=== PATIENT | female | born 2005 | race African-American/Black ===

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

== ENCOUNTER 2025-04-08 16:29 | Emergency (ER) | payer OTHER, SELFPAY ==
[2025-04-08] VITALS (8 sets, daily range): BP systolic 106–138; BP diastolic 73–101; PULSE 51–83; RESP 11–24; TEMP 37.3; O2SAT 99–100
[2025-04-08 18:37] LABS: Hematocrit 36.2 % (37.0-47.0); Hemoglobin 12.3 g/dL (12.0-15.0); Immature Granulocyte Percent A 0.6 % (0-0.5); Immature Platelet Fraction Pct 7.1 % (0.9-11.2); Lymphocytes Absolute Auto 0.69 K/mm3 (0.9-3.2); Mean Corpuscular HGB Conc 34.0 g/dl (32-36); Mean Corpuscular Hemoglobin 30.8 pg (26-34); Mean Corpuscular Volume 90.7 fl (80-100); Nucleated Red Blood Cells Absolute Auto 0.000 K/mm3 (0.0-0.012); Nucleated Red Blood Cells Perc 0.0 % (0.0-0.2); Platelet Count Result 164 k/mm3 (150-375); Red Blood Count 3.99 M/mm3 (4.2-5.4); White Blood Count 7.1 K/mm3 (4.5-10.0)
[2025-04-08] MEDS: BELLADONNA ALK/PHENOB ELIX 10 ML, MAG HYDROX/ALUMINUM HYD/SIMETH 30 ML, LIDOCAINE 2% VI... PO (18:44)
[2025-04-08] MEDS: ONDANSETRON INJ 4 MG/2 ML VIAL IV PUSH (18:44)
[2025-04-08 18:46] LABS: Add Urine Microscopic? YES; Appearance Urine Turbid (Clear); Glucose Urine UA Negative (Negative); Leukocyte Esterase Ur Trace LEU/UL (Negative); Nitrate Urine Negative (Negative); Non Pathogenic Casts 0-2; Specific Grav Ur 1.033 (1.001-1.035)
[2025-04-08 18:50] LABS: Hypochromasia Occasional
[2025-04-08 18:51] LABS: Ovalocytes Occasional; Schistocytes None Seen
[2025-04-08 18:52] LABS: Alanine Aminotransferase 21 U/L (6-35); Albumin Level 4.1 g/dL (3.5-5.1); Alkaline Phosphatase 62 U/L (38-126); Anion Gap 9 mmol/L (4-12); Aspartate Amino Transferase 30 U/L (14-36); Bilirubin,Total 1.2 mg/dL (0.2-1.3); Blood Urea Nitrogen 17 mg/dL (7-17); Calcium 9.5 mg/dL (8.4-10.2); Carbon Dioxide 25 mmol/L (22-30); Chloride 104 mmol/L (98-107); Estimated CRCL calculation 100 ml/min; Estimated Glomerular Filt Rate > 60; Glucose 90 mg/dL (65-110); Lipase 52 U/L (23-300); Potassium 3.6 mmol/L (3.4-5.0); Sodium 138 mmol/L (137-145); Total Protein 7.3 g/dL (6.3-8.2)
[2025-04-08] MEDS: SODIUM CHLORIDE 0.9% IV 1,000 ML 999 ML IV CONT (18:54)
[2025-04-08 18:59] LABS: BEDSIDEPREGUCG Negative (Negative)
--- NOTE | 2025-04-08 19:41 | ED_ITS ---
HPI - General Adult General Chief complaint: Nausea/Vomiting/Diarrhea Stated complaint: Vomiting 2 days, cp Time Seen by Provider: 04/08/25 17:54 History of Present Illness HPI narrative: Patient is a 19-year-old female who presents to the ER with nausea vomiting. Ongoing for 2 days. No diarrhea. It began after going to a cookout where she did not eat any of the food and she did not consume any alcohol. No known sick contacts. No blood in emesis. No alleviating factors at home. Related Data Allergies Allergy/AdvReac Type Severity Reaction Status Date / Time No Known Allergies Allergy Verified 04/08/25 18:07 Review of Systems 2 Review of Systems: All systems reviewed & are unremarkable except as noted in HPI and below Constitutional: Constitutional: Reports no additional constitutional complaints ENT: Reports system reviewed and no additional complaints, except as documented Cardiovascular: Cardiovascular: Reports no additional cardiovascular complaints Respiratory: Respiratory: Reports no additional respiratory complaints Gastrointestinal: Gastrointestinal: Reports no additional gastrointestinal complaints PMF Past Medical History Medical History (Updated 04/08/25 @ 19:49 by Robe Holly MD) Healthy female adult Surgical History Surgical History (Updated 04/08/25 @ 19:44 by Robe Holly MD) No history of previous surgery Exam 2 Narrative: GENERAL: Fatigued-appearing, well-nourished, and in no acute distress. HEAD: Normocephalic, atraumatic. ENT: Mucous membranes moist. NECK: Supple. CHEST: Clear to auscultation. No respiratory distress. HEART: Regular rate and rhythm. Normal peripheral pulses. ABDOMEN: Soft, mild diffuse discomfort without guarding, nondistended. EXTREMITIES: Normal range of motion. No edema. SKIN: Warm, dry, no rash. NEURO: Alert and oriented x3. PSYCH: Normal mood and affect. Course Course Emergency Course: CMP/CBC normal. Urinalysis with 2+ ketones and no infection. Patient received Zofran GI cocktail. Vital Signs Vital signs: Vital Signs Temperature 99.2 F 04/08/25 16:32 Pulse Rate 62 04/08/25 16:32 Respiratory Rate 20 04/08/25 16:32 Blood Pressure 138/101 H 04/08/25 16:32 Pulse Oximetry 100 04/08/25 16:32 Oxygen Delivery Room Air 04/08/25 16:32 Temperature 99.2 F 04/08/25 16:32 Pulse Rate 56 L 04/08/25 18:32 Respiratory Rate 24 H 04/08/25 18:32 Blood Pressure 125/73 04/08/25 18:06 Pulse Oximetry 100 04/08/25 18:32 Oxygen Delivery Room Air 04/08/25 18:06 Medical Decision Making Vital Signs Vital Signs: Vital Signs Temperature 99.2 F 04/08/25 16:32 Pulse Rate 62 04/08/25 16:32 Respiratory Rate 20 04/08/25 16:32 Blood Pressure 138/101 H 04/08/25 16:32 Pulse Oximetry 100 04/08/25 16:32 Oxygen Delivery Room Air 04/08/25 16:32 Temperature 99.2 F 04/08/25 16:32 Pulse Rate 56 L 04/08/25 18:32 Respiratory Rate 24 H 04/08/25 18:32 Blood Pressure 125/73 04/08/25 18:06 Pulse Oximetry 100 04/08/25 18:32 Oxygen Delivery Room Air 04/08/25 18:06 Lab Data 04/08/25 18:22 04/08/25 18:22 Labs: Lab Results 04/08/25 04/08/25 Range/Units 18:22 18:58 WBC 7.1 (4.5-10.0) K/mm3 RBC 3.99 L (4.2-5.4) M/mm3 Hgb 12.3 (12.0-15.0) g/dL Hct 36.2 L (37.0-47.0) % MCV 90.7 (80-100) fl MCH 30.8 (26-34) pg MCHC 34.0 (32-36) g/dl RDW 12.0 (11.5-14.5) % Plt Count 164 (150-375) k/mm3 MPV 11.8 H (7.4-10.4) fl Immature Gran % (Auto) 0.6 H (0-0.5) % Neut % (Auto) 85.0 H (45.5-73.1) % Lymph % (Auto) 9.7 L (18.3-44.2) % [place] % (Auto) 4.4 (2.6-8.5) % Eos % (Auto) 0.0 (0-4.4) % Baso % (Auto) 0.3 (0.2-1.2) % Lymph # (Auto) 0.69 L (0.9-3.2) K/mm3 [place] # (Auto) 0.3 (0.1-0.6) K/mm3 Eos # (Auto) 0.0 (0-0.3) K/mm3 Baso # (Auto) 0.0 (0.0-0.1) K/mm3 Abs Immat Gran (auto) 0.04 H (0.00-0.031) K/mm3 Absolute Neuts (auto) 6.1 (1.3-6.7) K/mm3 Absolute Nucleated RBC 0.000 (0.0-0.012) K/mm3 Band Neutrophils % Not Reportable Nucleated RBC % 0.0 (0.0-0.2) % Platelet Estimate Slightly decreased (Adequate) Large Platelets Present % Immature Plt Fraction 7.1 (0.9-11.2) % Hypochromasia Occasional Ovalocytes Occasional Schistocytes None seen Sodium 138 (137-145) mmol/L Potassium 3.6 (3.4-5.0) mmol/L Chloride 104 (98-107) mmol/L Carbon Dioxide 25 (22-30) mmol/L Anion Gap 9 (4-12) mmol/L BUN 17 (7-17) mg/dL Creatinine 0.87 (0.7-1.0) mg/dL Estim Creat Clear Calc 100 ml/min Estimated GFR > 60 (59 - ) Glucose 90 (65-110) mg/dL Calcium 9.5 (8.4-10.2) mg/dL Total Bilirubin 1.2 (0.2-1.3) mg/dL AST 30 (14-36) U/L ALT 21 (6-35) U/L Alkaline Phosphatase 62 (38-126) U/L Total Protein 7.3 (6.3-8.2) g/dL Albumin 4.1 (3.5-5.1) g/dL Lipase 52 (23-300) U/L Urine Color Dark yellow (Yellow) Urine Appearance Turbid H (Clear) Urine pH 7.5 (5.0-9.0) Ur Specific [place] 1.033 (1.001-1.035) Urine Protein 1+ H (Negative) mg/dL Urine Glucose (UA) Negative (Negative) mg/dL Urine Ketones 2+ H (Negative) mg/dL Ur Blood (Man) Negative (Negative) Urine Nitrate Negative (Negative) Urine Bilirubin Negative (Negative) Urine Urobilinogen 1.0 (<2.0) mg/dL Leukocyte Esterase Rfl Trace H (Negative) SHERRILL/UL Urine RBC 0-2 (0-2) /hpf Urine WBC 0-5 (0-3) /hpf Ur Squamous Epith Cells Occasional (Few) /hpf Urine Bacteria None seen /hpf Urine Casts 0-2 POC Urine HCG, Qual Negative (Negative) Discharge Plan Discharge Clinical Impression: Vomiting Patient Disposition: Home Condition: Stable Instructions: Acute Nausea and Vomiting (ED) Additional Instructions: Return to the emergency department if you develop severe abdominal pain, severe nausea and vomiting to the point where you are unable to keep down fluids, if you develop chest pain or difficulty breathing, blood in your stool, dizziness or fainting, or if you develop any other new or concerning symptoms as these could be signs of more serious medical illness. Try to stay well hydrated. Patient Language: Pashto Prescriptions: New dicyclomine 20 mg tablet 20 mg PO QID Qty: 20 0RF ondansetron 4 mg tablet,disintegrating 4 mg PO Q6H PRN (Reason: nausea and vomiting) Qty: 10 0RF famotidine [Pepcid] 20 mg tablet 20 mg PO DAILY Qty: 10 0RF No Action phenazopyridine [Pyridium] 200 mg tablet 200 mg PO TID 3 Days Qty: 9 0RF sulfamethoxazole-trimethoprim 800-160 mg tablet 1 tablet PO Q12H 5 Days Qty: 10 0RF nitrofurantoin monohyd/m-cryst [Macrobid] 100 mg capsule 100 mg PO Q12H 5 Days Qty: 10 0RF Rx Instructions: must administer with a meal/food Follow-up/Referrals: PHYSICIAN,APERTURE MASK ETCHER [Primary Care Provider, Internal Medicine] Marino Osborn MD [Physician, Family Practice] - 1 Week Stand Alone Forms: Work/School Release IP
[2025-04-08] MEDS: PROMETHAZINE HCL 25 MG/ML AMPUL 12.5 MG IV PUSH (20:02)
== END 2025-04-08 20:09 | disposition home or self-care (01) ==
PROVIDERS: Emergency Provider Emergency Medicine
DX: R11.2 Nausea with vomiting, unspecified (principal)
CPT/HCPCS: 36415; 80053; 81001; 81025; 83690; 85025; 85055; 96361; 96374; 96375; 99284; A9270; J2405; J2550; J7030

== ENCOUNTER 2025-04-11 03:09 | Emergency (ER) | payer OTHER, SELFPAY ==
[2025-04-11 03:15] VITALS: PULSE 77; RESP 13; TEMP 36.9; O2SAT 99
[2025-04-11 03:20] VITALS: BP 142/94; PULSE 69; RESP 15
--- NOTE | 2025-04-11 03:34 | ED.NAVMDI ---
HPI - Nausea/Vomiting/Diarrhea General Chief complaint: Nausea/Vomiting/Diarrhea Stated complaint: vomiting Time Seen by Provider: 04/11/25 03:15 History of Present Illness HPI Narrative: This is a 19-year-old female with no significant past medical history presents to the ED for nausea, vomiting, abdominal pain. Patient states for the past 4 days he has been having the symptoms. She has vomited up to 10 times daily. She has had diffuse abdominal pain. She was seen in this ED for similar symptoms few days ago and she states that her symptoms have not improved. Denies dysuria, chest pain, shortness of breath, fevers. Only prior abdominal surgery was a an umbilical hernia repair as an infant. Related Data Allergies Allergy/AdvReac Type Severity Reaction Status Date / Time No Known Allergies Allergy Verified 04/11/25 03:10 Review of Systems Review of Systems: Gen.: Denies fevers or chills Eyes: Denies eye pain or visual change ENT: Denies congestion Respiratory: Denies shortness of breath or cough CV: Denies chest pain or palpitations GI: As per HPI denies burning, urgency, frequency or hematuria Musculoskeletal: Denies back pain or muscle pain Neuro: Denies numbness, tingling, weakness or focal weakness Skin: Denies rash Except as documented, all other systems reviewed and negative PMFSH Past Medical History Medical History Healthy female adult Surgical History Surgical History No history of previous surgery Exam Narrative: APPEARANCE: Uncomfortable appearing, resting in bed EYES: EOMI HEENT: Normocephalic, atraumatic, mucous membranes dry RESPIRATORY: No respiratory distress Clear to auscultation bilaterally with no rhonchi wheezing or rales. CARDIOVASCULAR: Regular rate and rhythm without murmurs rubs or gallops. ABDOMINAL: Soft, mild diffuse tenderness to palpation without rebound or guarding MUSCULOSKELETAl: Moves all extremities. No clubbing, cyanosis or edema. NEURO: Awake and alert. Following commands, speech normal, no focal deficits SKIN:: Warm, dry. No rashes lesions or abrasions PSYCHIATRIC: Normal affect/mood, Course Vital Signs Vital signs: Vital Signs Temperature 98.5 F 04/11/25 03:15 Pulse Rate 77 04/11/25 03:15 Respiratory Rate 13 04/11/25 03:15 Pulse Oximetry 99 04/11/25 03:15 Oxygen Delivery Room Air 04/11/25 03:15 Temperature 98.5 F 04/11/25 03:15 Pulse Rate 69 04/11/25 03:20 Respiratory Rate 15 04/11/25 03:20 Blood Pressure 142/94 H 04/11/25 03:20 Pulse Oximetry 99 04/11/25 03:15 Oxygen Delivery Room Air 04/11/25 03:15 MDM - Nausea/Vomiting/Diarrhea MDM Narrative Medical decision making narrative: 19-year-old female that presented to the ED for nausea, vomiting, abdominal pain. On initial evaluation, patient was in mild distress, afebrile, hemodynamically stable. She had mild diffuse tenderness to palpation to the abdomen without rebound or guarding. S membranes were dry. Patient was given 2 L NS bolus and Reglan and Toradol. On re-evaluation, she did have significant improvement of her nausea and pain. CBC was without significant abnormalities. She was mildly hypokalemic to 2.9. She was given 40 m equivalents potassium chloride. UDS positive for marijuana. Suspect that patient does have cyclic vomiting syndrome related to that. She was able to tolerate water and was feeling significantly better. Patient was deemed appropriate for discharge at this time. She was given a referral to [facility] to establish care. She will be given a prescription for Reglan and K-Dur. Patient was agreeable to this plan. Given strict return precautions. Differential Diagnosis Differential diagnosis: Likely food poisoning, gastroenteritis, drug-induced nausea and vomiting and dehydration Medical Records Attestation: I reviewed the patient's medical records. Lab Data Attestation: I reviewed the patient's lab results. 04/11/25 03:35 04/11/25 03:35 Labs: Lab Results 04/11/25 04/11/25 Range/Units 03:35 03:36 WBC 6.7 (4.5-10.0) K/mm3 RBC 4.56 (4.2-5.4) M/mm3 Hgb 14.0 (12.0-15.0) g/dL Hct 39.5 (37.0-47.0) % MCV 86.6 (80-100) fl MCH 30.7 (26-34) pg MCHC 35.4 (32-36) g/dl RDW 11.6 (11.5-14.5) % Plt Count 260 D (150-375) k/mm3 MPV 10.9 H (7.4-10.4) fl Immature Gran % (Auto) 0.3 (0-0.5) % Neut % (Auto) 69.1 (45.5-73.1) % Lymph % (Auto) 18.7 (18.3-44.2) % [place] % (Auto) 11.2 H (2.6-8.5) % Eos % (Auto) 0.3 (0-4.4) % Baso % (Auto) 0.4 (0.2-1.2) % Lymph # (Auto) 1.25 (0.9-3.2) K/mm3 [place] # (Auto) 0.8 H (0.1-0.6) K/mm3 Eos # (Auto) 0.0 (0-0.3) K/mm3 Baso # (Auto) 0.0 (0.0-0.1) K/mm3 Abs Immat Gran (auto) 0.02 (0.00-0.031) K/mm3 Absolute Neuts (auto) 4.6 (1.3-6.7) K/mm3 Absolute Nucleated RBC 0.000 (0.0-0.012) K/mm3 Nucleated RBC % 0.0 (0.0-0.2) % Sodium 133 L (137-145) mmol/L Potassium 2.9 L (3.4-5.0) mmol/L Chloride 97 L (98-107) mmol/L Carbon Dioxide 24 (22-30) mmol/L Anion Gap 12 (4-12) mmol/L BUN 7 D (7-17) mg/dL Creatinine 0.99 (0.7-1.0) mg/dL Estim Creat Clear Calc 89 ml/min Estimated GFR > 60 (59 - ) Glucose 96 (65-110) mg/dL Calcium 9.3 (8.4-10.2) mg/dL Total Bilirubin 1.9 H (0.2-1.3) mg/dL AST 42 H (14-36) U/L ALT 44 H (6-35) U/L Alkaline Phosphatase 61 (38-126) U/L Total Protein 8.4 H (6.3-8.2) g/dL Albumin 4.6 (3.5-5.1) g/dL Lipase 64 (23-300) U/L Urine Color Yellow (Yellow) Urine Appearance Turbid H (Clear) Urine pH 7.5 (5.0-9.0) Ur Specific [place] 1.016 (1.001-1.035) Urine Protein Negative (Negative) mg/dL Urine Glucose (UA) Negative (Negative) mg/dL Urine Ketones Negative (Negative) mg/dL Ur Blood (Man) Negative (Negative) Urine Nitrate Negative (Negative) Urine Bilirubin Negative (Negative) Urine Urobilinogen 2.0 H (<2.0) mg/dL Add Ur Microanalysis Reviewed Leukocyte Esterase Rfl 1+ H (Negative) SHERRILL/UL Urine RBC 0-2 (0-2) /hpf Urine WBC 0-5 (0-3) /hpf Ur Squamous Epith Cells None seen (Few) /hpf Amorphous Sediment Few H (None) Urine Bacteria None seen /hpf Urine Casts 0-2 POC Urine HCG, Qual Negative (Negative) Urine Test Negative Urine Opiates Screen Negative (Negative) Urine Methadone Screen Negative (Negative) Ur Barbiturates Screen Negative (Negative) Ur Phencyclidine Scrn Negative (Negative) Ur Amphetamine Screen Negative (Negative) U Benzodiazepines Scrn Negative (Negative) Urine Cocaine Screen Negative (Negative) U Cannabinoids Screen Positive A (Negative) Discharge Plan Discharge Clinical Impression: Cyclic vomiting syndrome Patient Disposition: Home Condition: Stable Instructions: Antibiotic Form, Cyclic Vomiting Syndrome (ED) Additional Instructions: Take Reglan as prescribed. Continue to take your previous medications as prescribed. Drink plenty of fluids. Try a bland diet. You were given a referral to Dr. Osborn. Return to the ED for any new or worsening symptoms. Patient Language: [place] Prescriptions: New metoclopramide HCl [Reglan] 10 mg tablet 10 mg PO Q6H PRN (Reason: nausea and vomiting) Qty: 14 0RF potassium chloride 20 mEq packet 40 meq PO DAILY Qty: 6 0RF No Action phenazopyridine [Pyridium] 200 mg tablet 200 mg PO TID 3 Days Qty: 9 0RF sulfamethoxazole-trimethoprim 800-160 mg tablet 1 tablet PO Q12H 5 Days Qty: 10 0RF nitrofurantoin monohyd/m-cryst [Macrobid] 100 mg capsule 100 mg PO Q12H 5 Days Qty: 10 0RF Rx Instructions: must administer with a meal/food dicyclomine 20 mg tablet 20 mg PO QID Qty: 20 0RF ondansetron 4 mg tablet,disintegrating 4 mg PO Q6H PRN (Reason: nausea and vomiting) Qty: 10 0RF famotidine [Pepcid] 20 mg tablet 20 mg PO DAILY Qty: 10 0RF Follow-up/Referrals: PHYSICIAN,SENIOR FIRMWARE ENGINEER [Primary Care Provider, Internal Medicine]
[2025-04-11] MEDS: KETOROLAC 30 MG/ML VIAL (*BKC) IV PUSH (03:37)
[2025-04-11 03:38] LABS: BEDSIDEPREGUCG Negative (Negative)
[2025-04-11] MEDS: SODIUM CHLORIDE 0.9% IV 1,000 ML 999 ML IV CONT ×2 (03:39→03:40)
[2025-04-11 03:47] LABS: Hematocrit 39.5 % (37.0-47.0); Hemoglobin 14.0 g/dL (12.0-15.0); Immature Granulocyte Percent A 0.3 % (0-0.5); Lymphocytes Absolute Auto 1.25 K/mm3 (0.9-3.2); Mean Corpuscular HGB Conc 35.4 g/dl (32-36); Mean Corpuscular Hemoglobin 30.7 pg (26-34); Mean Corpuscular Volume 86.6 fl (80-100); Nucleated Red Blood Cells Absolute Auto 0.000 K/mm3 (0.0-0.012); Nucleated Red Blood Cells Perc 0.0 % (0.0-0.2); Platelet Count Result 260 k/mm3 (150-375); Red Blood Count 4.56 M/mm3 (4.2-5.4); White Blood Count 6.7 K/mm3 (4.5-10.0)
[2025-04-11] MEDS: METOCLOPRAMIDE HCL INJ 10 MG/2 ML VIAL IV PUSH (03:47)
[2025-04-11 03:59] LABS: Alanine Aminotransferase 44 U/L (6-35); Albumin Level 4.6 g/dL (3.5-5.1); Alkaline Phosphatase 61 U/L (38-126); Anion Gap 12 mmol/L (4-12); Aspartate Amino Transferase 42 U/L (14-36); Bilirubin,Total 1.9 mg/dL (0.2-1.3); Blood Urea Nitrogen 7 mg/dL (7-17); Calcium 9.3 mg/dL (8.4-10.2); Carbon Dioxide 24 mmol/L (22-30); Chloride 97 mmol/L (98-107); Estimated CRCL calculation 89 ml/min; Estimated Glomerular Filt Rate > 60; Glucose 96 mg/dL (65-110); Lipase 64 U/L (23-300); Potassium 2.9 mmol/L (3.4-5.0); Sodium 133 mmol/L (137-145); Total Protein 8.4 g/dL (6.3-8.2)
[2025-04-11 04:00] LABS: Add Urine Microscopic? YES; Appearance Urine Turbid (Clear); Glucose Urine UA Negative (Negative); Leukocyte Esterase Ur 1+ LEU/UL (Negative); Need Manual Microscopic Reviewed; Nitrate Urine Negative (Negative); Non Pathogenic Casts 0-2; Specific Grav Ur 1.016 (1.001-1.035)
[2025-04-11] MEDS: POTASSIUM CHLORIDE 20 MEQ ER TABLET 40 MEQ PO (04:43)
[2025-04-11 05:06] LABS: Cannabinoid Screen Urine Positive (Negative)
[2025-04-11 05:24] LABS: Pregnancy On Board Control Positive
== END 2025-04-11 05:39 | disposition home or self-care (01) ==
PROVIDERS: Emergency Provider Student in an Organized Health Care Education/Training Program
DX: R11.15 Cyclical vomiting syndrome unrelated to migraine (principal)
CPT/HCPCS: 36415; 80053; 80307; 81001; 81025; 83690; 85025; 87086; 96361; 96374; 96375; 99284; A9270; J1885; J2765; J7030

== ENCOUNTER 2025-07-22 15:20 | Emergency (ER) | payer OTHER, SELFPAY ==
--- NOTE | ~2025-07-22 | XR_ITS ---
EXAMINATION: KUB: DATE: 07/22/2025. INDICATION: Constipation. TECHNIQUE: Supine AP view of the abdomen were obtained. COMPARISON: CT abdomen pelvis 03/20/2023. FINDINGS: Bowel gas pattern is normal. No significant fecal impaction. No abnormal soft tissue densities or calcific densities are seen. IMPRESSION: 1. Supine AP view of abdomen shows no significant focal abnormalities. Reviewed, dictated and finalized at location T. 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
--- OUTSIDE RECORDS SUMMARY | 2025-07-22 15:23 | XMS_ITS | Clinical Summary ---
Author Organization [facility] Address [address] [place] [id number] Care Team Providers Care Hostel Parent Name Role Phone None, Provider MD Primary Care Provider Unavaila ble Allergies No known active allergies Medications No known medications Active Problems Problem Noted Date Diagnosed Date Intractable vomiting with nausea 05/05/2025 Nausea & vomiting 04/22/2025 Encounters Date Type Department Care Team Description 05/04/2025 8:59 PM CDT - 05/07/2025 1:18 PM CDT Hospital Encounter [facility] [place] [address] Petr Talbot MD Nash, Anne N, MD Nausea Discharge Disposition: Home or Self Care (Routine Discharge) 05/04/2025 Travel 04/22/2025 1:44 PM CDT - 04/23/2025 12:22 PM CDT Hospital Encounter [facility] Med/Surg [address] [place] [address] Supriya George PA [place], Stuart, Vomiting Discharge Disposition: Home or Self Care (Routine Discharge) 04/22/2025 Travel from Last 3 Months Social History Tobacco Use Types Packs/Day Years Used Date Smoking Tobacco: Never Smokeless Tobacco: Never Tobacco Cessation:Counseling Given: Not Answered Alcohol Use Standard Drinks/Week Comments Never 0 (1 standard drink = 0.6 oz pur e alcohol) [facility] Utilities Answer Date Recorded In the past 12 months has [employer] electric, gas, oil, or water company threatened to shut off services in your home? No 05/05/2025 Humiliation, Afraid, Rape, and Kick questionnair e Answer Date Recorded Within the last year, have y ou been afraid of your partner or ex-partner? No 05/05/2025 Within the last year, have y ou been humiliated or emotionally abused in other ways by your partner or ex-partner? No Within the last year, have y ou been kicked, hit, slapped, or otherwise physically hurt by your partner or ex-partner? No 05/05/2025 Within the last year, have y ou been raped or forced to have any kind of sexual activity by your partner or ex-partner? No 05/05/2025 AUDIT-C Answer Date Recorded Q1: How often do you have a drink containing alcohol? Never 04/22/2025 Q2: How many drinks containi ng alcohol do you have on a typical day when you are drinking? Patient does not drink Q3: How often do you have si x or more drinks on one occasion? Never 04/22/2025 Overall Financial Resource Strain (CARDIA) Answe r Date Recorded How hard is it for you to pa y for the very basics like food, housing, medical care, and heating? Not very hard 05/05/2025 Hunger Vital Sign Answer Date Recorded Within the past 12 months, y ou worried that your food would run out before you got the money to buy more. Never true 05/05/20 25 Within the past 12 months, t he food you bought just didn't last and you didn't have money to get more. Never true 05/05/2025 PRAPARE - Transportation Answer Date Re corded In the past 12 months, has l ack of transportation kept you from medical appointments or from getting medications? No 04/25 In the past 12 months, has l ack of transportation kept you from meetings, work, or from getting things needed for daily living? No 05/05/2025 Housing Stability Vital Sign Answer Paul e Recorded In the last 12 months, was t here a time when you were not able to pay the mortgage or rent on time? No 05/05/2025 In the past 12 months, how m any times have you moved where you were living? 1 05/05/2025 At any time in the past 12 m [facility], were you homeless or living in a assisted (including now)? No 05/05/2025 Comments No Sex and Gender Information Value Date Recorded Sex Assigned at Female 04/22/2025 2:42 PM CDT Legal Sex Female 1:16 PM CDT Gender Identity Not on file Sexual Orientation Not on file Last Filed Vital Signs Vital Sign Reading Time Taken Comments Blood Pressure 150/91 05/07/2025 12:41 PM CDT Pulse 59 05/07/2025 12:41 PM CDT Temperature 37.1 C (98.7 F) 05/07/2025 12:41 PM CDT Respiratory Rate 14 05/07/2025 12:41 PM CDT Oxygen Saturation 100% 05/07/2025 12:41 PM CDT Inhaled Oxygen Concentration - - Weight 89.4 kg (197 lb 1.5 oz) 05/05/2025 2:42 A M CDT Height 167.6 cm (5' 6) 05/04/2025 8:54 PM CDT Body Mass Index 31.81 05/04/2025 8:54 PM CDT Plan of Treatment Health Maintenance Due Date Last Done Comments Annual Physical 2007 Meningococcal B Vaccine (1 of 2 - Standard) 2020 Hepatitis C 2022 COVID-19 Vaccine ( - 2024- season) 2025 Influenza Adult (#1) 2025 DTaP, Tdap and Td Vaccines (8 - Td or Tdap) 11/21/2025 11/22/2015, 11/22/2015, 10/10/2009, Additional history exists Hepatitis B Vaccines Completed 02/06/2005, 2004, 2004, Additional history exists Pneumococcal Vaccine: Pediatrics (0 to 5 Years) and At-Risk Patients (6 to 49 Years) Aged Out 08/14/2005, 02/06/2005, 2004, Additional history exists No longer eligible based on patient's age to complete this topic Hepatitis A Vaccines Completed 09/08/2007, 11/12/19 06 HPV Vaccines Completed 06/14/2017, 11/27/2016 Meningococcal Vaccine Completed 03/24/2021, 016 RSV Immunizations Under 20 Months Aged Out No longer eligible based on patient's age to complete this topic Goals Goal Patient Goal Type Associated Problems Recent Progress Patient-Stated? 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 inspector Procedure Name Priority Date/Time Associated Diagnosis Comments HC BASIC METABOLIC PANEL Routine 05/07/2025 5:09 AM CDT HC CBC AUTO W/AUTO DIFF Routine 05/07/2025 5:09 AM CDT HC MAGNESIUM Routine 05/06/2025 4:40 AM CDT HC BASIC METABOLIC PANEL Routine 05/06/2025 4:40 AM CDT HC CBC AUTO W/AUTO DIFF Routine 05/06/2025 4:40 AM CDT HC PHOSPHORUS TIMED 05/05/2025 2:34 PM CDT HC EIA QL CLOS DIFF TOXIN AG Routine 05/05/2025 1:52 PM CDT GI PANEL PCR - STOOL Routine 05/05/2025 1:52 PM CDT LACTIC ACID W REFLEX (SEPSIS) TIMED 05/05/2025 4:27 AM CDT HC BASIC METABOLIC PANEL STAT 05/05/2025 4:27 AM CDT HC CBC AUTO W/AUTO DIFF STAT 05/05/2025 4:27 AM CDT RESPIRATORY PCR PANEL 2 STAT 05/05/2025 2:15 AM CDT LACTIC ACID W REFLEX (SEPSIS) TIMED 05/05/2025 2:07 AM CDT HC BLOOD CULTURE STAT 05/05/2025 2:0 6 AM CDT HC BLOOD CULTURE STAT 05/05/2025 2:06 AM CDT SALICYLATE STAT 05/05/2025 2:[address] ABD+PEL W CON STAT 05/04/2025 11:5 5 PM CDT POCT URINE (BACK OFFICE) STAT 05/04/2025 11:36 PM CDT LACTIC ACID W REFLEX (SEPSIS) TIMED 05/04/2025 11:36 PM CDT HC CULTURE URINE W/COLONY CT Routine 05/04/2025 11:17 PM CDT DRUG SCREEN RAPID STAT 05/04/2025 11: 17 PM CDT HC URINALYSIS AUTO W/O MICRO STAT 05/04/2025 11:17 PM CDT TSH W/REFLEX Routine 05/04/2025 10:05 PM CDT HC PHOSPHORUS Routine 05/04/2025 10:05 PM CDT HC DRUG SCREEN PRESUMPTIVE INSTRUMENT T4 STAT 05/04/2025 10:05 PM CDT ETHANOL STAT 05/04/2025 10:05 PM CDT LACTIC ACID W REFLEX (SEPSIS) STAT 05/04/2025 9:13 PM CDT HC LIPASE STAT 05/04/2025 9:13 PM CDT HC MAGNESIUM STAT 05/04/2025 9:13 PM CDT HC BASIC METABOLIC PANEL STAT 05/04/2025 9:13 PM CDT HC CBC AUTO W/AUTO DIFF STAT 05/04/2025 9:13 PM CDT US ABD LIMITED Today 04/23/2025 8:35 AM CDT HC MAGNESIUM Routine 04/23/2025 4:36 AM CDT HC BASIC METABOLIC PANEL Routine 04/23/2025 4:36 AM CDT HC CBC AUTO W/AUTO DIFF Routine 04/23/2025 4:36 AM CDT HC LACTATE/LACTIC ACID TIMED 5:47 PM CDT HC BLOOD CULTURE STAT 04/22/2025 4:58 PM CDT LACTIC ACID W REFLEX (SEPSIS) TIMED 04/22/2025 4:58 PM CDT HC C-REACTIVE PROTEIN Routine 04/22/2025 4:57 PM CDT PROCALCITONIN (PCT) STAT 04/22/2025 4 :57 PM CDT HC COMPREHENSIVE METABOLIC PANEL STAT 04/22/2025 4:57 PM CDT HC BLOOD CULTURE STAT 04/22/2025 4:48 PM CDT LACTIC ACID W REFLEX (SEPSIS) STAT 04/22/2025 3:04 PM CDT ECG 12-LEAD Routine 04/22/2025 2:[address] ABD+PEL W CON STAT 04/22/2025 2:52 PM CDT POCT URINE (BACK OFFICE) STAT 04/22/2025 2:08 PM CDT HC CULTURE URINE W/COLONY CT STAT 04/22/2025 1:53 PM CDT HC SED RATE AUTO Routine 04/22/2025 1:53 PM CDT HC URINALYSIS AUTO W/O MICRO STAT 04/22/2025 1:53 PM CDT HC MAGNESIUM STAT 04/22/2025 1:53 PM CDT HC LIPASE STAT 04/22/2025 1:53 PM CDT BASIC METABOLIC PANEL STAT 04/22/2025 1:53 PM CDT HC CBC AUTO W/AUTO DIFF STAT 04/22/2025 1:53 PM CDT from Last 3 Months Results * (ABNORMAL) BASIC METABOLIC PANEL (05/07/2025 5:09 AM CDT) Only the most recent of6 resultswithin the time period is included. [facility] GLUCOSE 88 70 - 99 MG/DL 05/07/2025 5:55 AM CDT [facility] BUN 7 7 - 18 MG/DL 05/07/2025 5:55 AM CDT [facility] CREATININE S/P/B 0.75 0.55 - 1.02 MG/DL 05/07/2025 5:55 AM CDT [facility] SODIUM S/P/B 134(L) 136 - 145 MMOL/L 05/07/2025 5:55 AM CDT [facility] POTASSIUM S/P/B 3.5 3.5 - 5.1 MMOL/L 05/07/2025 5:55 AM CDT [facility] CHLORIDE S/P/B 98 97 - 115 MMOL/L 05/07/2025 5:55 AM CDT [facility] CO2 26.9 21 - 32 MMOL/L 05/07/2025 5:55 AM CDT [facility] CALCIUM S/P/B 9.4 8.5 - 10.1 MG/DL 05/07/2025 5:55 AM CDT [facility] ANION GAP 9.1 2 - 10 MMOL/L 05/07/2025 5:55 AM CDT [facility] BUN CREATININE RATIO 9.4 6 - 26 05/07/2025 5:55 AM CDT [facility] GFR ESTIMATE >90 >90 ML/MIN/1.7 3 M2 05/07/2025 5:55 AM CDT [facility] Comment: NOTE: eGFR is not calculated for patients <18 years of age or gender unknown. This is an estimated GFR calculation using the new CKD EPI creatinine equation without race and so does not require a correction factor for race. This estimated GFR should not be used for calculating drug doses. 05/07/2025 5:09 AM CDT us Lourdes Cisneros DO LABORATORY Fin al Result [facility] [address] [address], [place] [phone] * (ABNORMAL) CBC W/DIFF AUTOMATED (05/07/2025 5:09 AM CDT) Only the most recent of6 resultswithin the time period is included. WBC 8.21 4.5 - 13.0 x10'3/uL 05/07/2025 5:38 AM CDT [facility] RBC 3.84(L) 4.20 - 5.40 x10'6/uL 05/07/2025 5:38 AM CDT [facility] HGB 11.7(L) 12.0 - 16.0 G/DL 05/07/2025 5:38 AM CDT [facility] HCT 34.2(L) 38.0 - 48.0 % 05/07/2025 5:38 AM CDT [facility] MCV 89.1 81.0 - 99.0 FL 05/07/2025 5:38 AM CDT [facility] MCH 30.5 27.0 - 31.0 PG 05/07/2025 5:38 AM CDT [facility] MCHC 34.2 32.0 - 36.0 G/DL 05/07/2025 5:38 AM CDT [facility] RDW 11.9 11.5 - 14.5 % 05/07/2025 5:38 AM CDT [facility] PLT 278 130 - 400 x10'3/uL 05/07/2025 5:38 AM CDT [facility] MPV 11.1 9.3 - 12.2 FL 05/07/2025 5:38 AM CDT [facility] DIFFERENTIAL TYPE AUTOMATED DIFFERENTIAL 05/07/2025 5:38 AM CDT [facility] NEUTROPHILS % 81.3 % 05/07/2025 5:38 AM CDT [facility] LYMPHOCYTES % 10.0 % 05/07/2025 5:38 AM CDT [facility] MONOCYTES % 8.2 % 05/07/2025 5:38 AM CDT [facility] EOSINOPHILS 0.2 % 05/07/2025 5:38 AM CDT [facility] BASOPHILS 0.1 % 05/07/2025 5:38 AM CDT [facility] IMMATURE GRANS % 0.2 % 05/07/20 5:38 AM CDT [facility] ABS. NEUTROPHILS 6.67 1.80 - 8.00 x10'3/uL 05/07/2025 5:38 AM CDT [facility] ABS. LYMPHOCYTES 0.82(L) 1.20 - 5.20 x10'3/uL 05/07/2025 5:38 AM CDT [facility] ABS. MONOCYTES 0.67 0.24 - 0.86 x10'3/uL 05/07/2025 5:38 AM CDT [facility] ABS. EOSINOPHILS 0.02(L) 0.04 - 0.36 x10'3/uL 05/07/2025 5:38 AM CDT [facility] ABS. BASOPHILS 0.01 0.01 - 0.08 x10'3/uL 05/07/2025 5:38 AM CDT [facility] ABS. IMMATURE GRANULOCYTES 0.02 0.00 - 0.49 x10'3/uL 05/07/2025 5:38 AM CDT [facility] 05/07/2025 5:09 AM CDT Lourdes Cisneros DO LABORATORY Fin al Result [facility] [address] [place], [place] [id number], * MAGNESIUM (05/06/2025 4:40 AM CDT) Only the most recent of4 resultswithin the time period is included. MAGNESIUM 1.9 1.8 - 2.4 MG/DL 05/06/2025 5:29 AM CDT [facility] Comment:SLIGHT HEMOLYSIS, RE SULT MAY BE AFFECTED. 05/06/2025 4:40 AM CDT [facility] Fin al Result [facility] [address] [place] [address], * PHOSPHORUS, INORGANIC PHOSPHATE (05/05/2025 2:34 PM CDT) Only the most recent of2 resultswithin the time period is included. [facility] PHOSPHORUS 3.8 2.5 - 4.9 MG/DL 05/05/2025 3:09 PM CDT [facility] 05/05/2025 2:34 PM CDT us Lourdes Cisneros DO LABORATORY Fin al Result [facility] [address] [place] [address], * GI PANEL PCR - STOOL (05/05/2025 1:52 PM CDT) [facility] CAMPYLOBACTER PCR (STOOL) NOT DETECTED NOT DETECTED 05/05/2025 4:35 PM CDT [facility] PLESIOMONAS SHIGELLOIDES PCR (STOOL) NOT DETECTED NOT DETECTED 05/05/2025 4:35 PM CDT [facility] SALMONELLA PCR (STOOL) NOT DETECTED NOT DETECTED 05/05/2025 4:35 PM CDT [facility] VIBRIO PCR (STOOL) NOT DETECTED NOT DETECTED 05/05/2025 4:35 PM CDT [facility] VIBRIO CHOLERAE PCR (STOOL) NOT DETECTED NOT DETECTED 05/05/2025 4:35 PM CDT [facility] YERSINIA ENTEROCOLITICA PCR (STOOL) NOT DETECTED NOT DETECTED 05/05/2025 4:35 PM CDT [facility] ENTEROAGGREGATIVE ECOLI PCR (STOOL) NOT DETECTED NOT DETECTED 05/05/2025 4:35 PM CDT [facility] ENTEROPATHOGENIC ECOLI PCR (STOOL) NOT DETECTED NOT DETECTED 05/05/2025 4:35 PM CDT [facility] ENTEROTOXIGENIC ECOLI PCR (STOOL) NOT DETECTED NOT DETECTED 05/05/2025 4:35 PM CDT [facility] SHIGA LIKE TOXIN ECOLI PCR (STOOL) NOT DETECTED NOT DETECTED 05/05/2025 4:35 PM CDT [facility] SHIG/ENTEROINVASIVE ECOLI PCR (STOOL) NOT DETECTED NOT DETECTED 05/05/2025 4:35 PM CDT [facility] CRYPTOSPORIDIUM PCR (STOOL) NOT DETECTED NOT DETECTED 05/05/2025 4:35 PM CDT [facility] CYCLOSPORA CAYETANENSIS PCR (STOOL) NOT DETECTED NOT DETECTED 05/05/2025 4:35 PM CDT [facility] ENTAMOEBA HISTOLYTICA PCR (STOOL) NOT DETECTED NOT DETECTED 05/05/2025 4:35 PM CDT [facility] GIARDIA LAMBLIA PCR (STOOL) NOT DETECTED NOT DETECTED 05/05/2025 4:35 PM CDT [facility] ADENOVIRUS F40/41 PCR (STOOL) NOT DETECTED NOT DETECTED 05/05/2025 4:35 PM CDT [facility] ASTROVIRUS PCR (STOOL) NOT DETECTED NOT DETECTED 05/05/2025 4:35 PM CDT [facility] NOROVIRUS GI/GII PCR (STOOL) NOT DETECTED NOT DETECTED 05/05/2025 4:35 PM CDT [facility] ROTAVIRUS A PCR (STOOL) NOT DETECTED NOT DETECTED 05/05/2025 4:35 PM CDT [facility] SAPOVIRUS PCR (STOOL) NOT DETECTED NOT DETECTED 05/05/2025 4:35 PM CDT [facility] STOOL SPECIMEN / Unknown 05/05/2025 1:52 PM CDT us Cecilio Aiken MD MICROBIOLOGY - GENERAL ORDERAB LES Final Result [facility] [address] [place] [address], * CLOSTRIDIUM DIFFICILE (05/05/2025 1:52 PM CDT) [facility] ANTIGEN NEGATIVE NEGATIVE 05/05/2025 4:13 PM CDT [facility] C DIFFICILE TOXIN A&B (STOOL) NEGATIVE NEGATIVE 05/05/2025 4:13 PM CDT [facility] COMMENT GDH NEGATIVE/TOXI N A & B NEGATIVE: NEGATIVE FOR TOXIGENIC C. DIFFICILE. 05/05/2025 4:13 PM CDT [facility] STOOL SPECIMEN / Unknown 05/05/2025 1:52 PM CDT Cecilio Aiken MD BODY FLUIDS AND STOOLS ORDERAB LES Final Result Performing Organization Address City/[facility]/ZIP Co de Phone Number [facility] [address] [place] [address], * LACTIC ACID W REFLEX (SEPSIS) (05/05/2025 4:27 AM CDT) Only the most recent of6 resultswithin the time period is included. LACTIC ACID VENOUS 1.8 0.4 - 2.0 MMOL/L 05/05/2025 5:08 AM CDT [facility] 05/05/2025 4:27 AM CDT Supriya CHARLES LABORATORY Final Result [facility] [address] [place] [address], [place] [phone] * RESPIRATORY PCR PANEL 2 (05/05/2025 2:15 AM CDT) [facility] ADENOVIRUS PCR (RESP) NOT DETECTED NOT DETECTED 05/05/2025 3:32 AM CDT [facility] CORONAVIRUS 229E PCR (RESP) NOT DETECTED NOT DETECTED 05/05/2025 3:32 AM CDT [facility] CORONAVIRUS HKU1 PCR (RESP) NOT DETECTED NOT DETECTED 05/05/2025 3:32 AM CDT [facility] CORONAVIRUS NL63 PCR (RESP) NOT DETECTED NOT DETECTED 05/05/2025 3:32 AM CDT [facility] CORONAVIRUS OC43 PCR (RESP) NOT DETECTED NOT DETECTED 05/05/2025 3:32 AM CDT [facility] METAPNEUMOVIRUS PCR (RESP) NOT DETECTED NOT DETECTED 05/05/2025 3:32 AM CDT [facility] RHINOVIRUS/ENTEROV IRUS PCR (RESP) NOT DETECTED NOT DETECTED 05/05/2025 3:32 AM CDT [facility] INFLUENZA A PCR (RESP) NOT DETECTED NOT DETECTED 05/05/2025 3:32 AM CDT [facility] INFLUENZA B PCR (RESP) NOT DETECTED NOT DETECTED 05/05/2025 3:32 AM CDT [facility] PARAINFLUENZA 1 PCR (RESP) NOT DETECTED NOT DETECTED 05/05/2025 3:32 AM CDT [facility] PARAINFLUENZA 2 PCR (RESP) NOT DETECTED NOT DETECTED 05/05/2025 3:32 AM CDT [facility] PARAINFLUENZA 3 PCR (RESP) NOT DETECTED NOT DETECTED 05/05/2025 3:32 AM CDT [facility] PARAINFLUENZA 4 PCR (RESP) NOT DETECTED NOT DETECTED 05/05/2025 3:32 AM CDT [facility] RSV PCR (RESP) NOT DETECTED NOT DETECTED 05/05/2025 3:32 AM CDT [facility] B PARAPERTUSIS PCR (RESP) NOT DETECTED NOT DETECTED 05/05/2025 3:32 AM CDT [facility] BORDETELLA PERTUSSIS PCR (RESP) NOT DETECTED NOT DETECTED 05/05/2025 3:32 AM CDT [facility] CHLAMYDOPHILA PNEUMONIAE PCR (RESP) NOT DETECTED NOT DETECTED 05/05/2025 3:32 AM CDT [facility] MYCOPLASMA PNEUMONIAE PCR (RESP) NOT DETECTED NOT DETECTED 05/05/2025 3:32 AM CDT [facility] CORONAVIRUS SARS COV 2 PCR (RESP) NOT DETECTED NOT DETECTED 05/05/2025 3:32 AM CDT [facility] NASOPHARYNGEAL SWAB / Unknown 05/05/2025 2:15 AM CDT Lourdes Cisneros DO MICROBIOLOGY - GENE RAL ORDERABLES Final Result [facility] [address] [place] [address], * CULTURE, BACTERIA, BLOOD (05/05/2025 2:06 AM CDT) Only the most recent of4 resultswithin the time period is included. SPEC DESCRIPTION BLOOD 05/05/2025 12:32 AM CDT [facility] SPECIAL REQUESTS NO SPECIAL REQUEST 05/05/2025 12:32 AM CDT [facility] CULTURE RESULT NO GROWTH 5 DAYS 05/10/2025 2:44 AM CDT [facility] BLOOD SPECIMEN OBTAINED FOR BLOOD CULTURE / Unknown 05/05/2025 2:06 AM CDT 05/05/2025 2:17 AM CDT Lourdes Cisneros DO MICROBIOLOGY - GENE RAL ORDERABLES Final Result Performing Organization Address [facility]/ZIP Co de Phone Number [facility] [address] [place] [address], [place] [phone] * (ABNORMAL) SALICYLATE (05/05/2025 2:06 AM CDT) SALICYLATES <1.7(L) 2.8 - 20.0 MG/DL 05/05/2025 2:33 AM CDT [facility] Comment: THERAPEUTIC: 2.8-20.0 Toxic Level: >=30 05/05/2025 2:06 AM CDT Lourdes Cisneros DO LABORATORY Fin al Result Performing Organization Address [facility] de Phone Number [facility] [address] [place] [address], [place] [phone] * CT ABD+PEL W IV CON ONLY (05/04/2025 11:55 PM CDT) Only the most recent of2 resultswithin the time period is included. Anatomical Region Laterality Modality Abdomen Computed Tomogra phy 05/05/2025 12:0 9 AM CDT Impressions 05/05/2025 12:12 AM CDT IMPRESSION: 1. Mild to moderate wall thickening of the urinary bladder which may be seen in the setting of cystitis or secondary to relative underdistention. Correlation with urinalysis may be beneficial for further characterization. 2. Otherwise, no acute CT findings within the abdomen or pelvis. Referred By: Interpreted By: Abdi Brownlee MD, 05/05/2025 12:09 AM Narrative 05/05/2025 12:12 AM CDT [address] [address] EXAMINATION: CT ABD+PEL W CON, 05/05/2025 12:09 AM TECHNIQUE: Computed tomographic images of the abdomen and pelvis were obtained at the administration of 100 mL of Isovue-370 injected through the IV, without evidence of adverse reaction. Additional coronal and sagittal reformatted images were generated. A dose lowering technique was used for this procedure, which may include, but is not limited to, dose reduction technique, automated exposure control, the use of iterative reconstruction, and ALARA (As Low As Reasonably Achievable) / Image Gently techniques. HISTORY: Nausea and vomiting COMPARISON: CT abdomen and pelvis 04/22/2025 FINDINGS: Probable 0.6 cm fissure lymph node within the left lower lobe (best seen on series 3 image 7), unchanged from the prior CT abdomen and pelvis examination from 04/22/2025. Lung bases are well-aerated. Heart size is normal. ABDOMEN: Liver is normal in size and contour. Gallbladder is negative. There is no bile duct dilation. The pancreas is negative. The spleen is normal in size. Multiple small accessory spleens. No adrenal mass. No perinephric abnormality. Small left renal cyst. No hydronephrosis. No nephrolithiasis. The caliber of the abdominal aorta is normal. A few mildly prominent retroperitoneal lymph nodes, nonspecific, most likely reactive. PELVIS: The appendix is normal. There is no bowel dilation or wall thickening. Trace free fluid within the pelvis. Urinary bladder appears relatively decompressed. [id number] wall thickening of the urinary bladder, nonspecific. No pelvic adenopathy. No acute fracture nor destructive process of the visualized osseous structures. Procedure Note Abdi Brownlee MD - 05/05/2025 [facility] [address] [place], [place] [address] EXAMINATION: CT ABD+PEL W CON, 05/05/2025 12:09 AM TECHNIQUE: Computed tomographic images of the abdomen and pelvis wereobtained at the administration of 100 mL of Isovue-370 injected throughthe IV, without evidence of adverse reaction. Additional coronal andsagittal reformatted images were generated. A dose lowering technique wasused for this procedure, which may include, but is not limited to, dosereduction technique, automated exposure control, the use of iterativereconstruction, and ALARA (As Low As Reasonably Achievable) / Image Gentlytechniques. HISTORY: Nausea and vomiting COMPARISON: CT abdomen and pelvis 04/22/2025 FINDINGS: Probable 0.6 cm fissure lymph node within the left lower lobe(best seen on series 3 image 7), unchanged from the prior CT abdomen andpelvis examination from 04/22/2025. Lung bases are well-aerated. Heartsize is normal. ABDOMEN: Liver is normal in size and contour. Gallbladder is negative.There is no bile duct dilation. The pancreas is negative. The spleen isnormal in size. Multiple small accessory spleens. No adrenal mass. Noperinephric abnormality. Small left renal cyst. No hydronephrosis. Nonephrolithiasis. The caliber of the abdominal aorta is normal. A fewmildly prominent retroperitoneal lymph nodes, nonspecific, most likelyreactive. PELVIS: The appendix is normal. There is no bowel dilation or wallthickening. Trace free fluid within the pelvis. Urinary bladder appearsrelatively decompressed. Jclk-lk-[id number] wall thickening of the urinarybladder, nonspecific. No pelvic adenopathy. No acute fracture nordestructive process of the visualized osseous structures. IMPRESSION: 1. Mild to moderate wall thickening of the urinary bladder which may beseen in the setting of cystitis or secondary to relative underdistention.Correlation with urinalysis may be beneficial for furthercharacterization. 2. Otherwise, no acute CT findings within the abdomen or pelvis. Referred By: Interpreted By: Abdi Brownlee MD, 05/05/2025 12:09 AM Petr Talbot MD CT Final Resul t * POCT urine (05/04/2025 11:36 PM CDT) Only the most recent of2 resultswithin the time period is included. URINE HCG TEST NEGATIVE Internal Control: VALID 05/04/2025 11:3 6 PM CDT Supriya CHARLES POINT OF CARE TEST ORDERABLE S Final Result * (ABNORMAL) DRUG SCREEN RAPID (05/04/2025 11:17 PM CDT) AMPHETAMINE (U) NEGATIVE NEGATIVE 3:04 AM CDT [facility] BARBITURATES SCREEN (U) NEGATIVE NEGATIVE 05/05/2025 3:04 AM CDT [facility] BENZODIAZEPINES SCREEN (U) NEGATIVE NEGATIVE 05/05/2025 3:04 AM CDT [facility] CANNABINOIDS SCREEN (U) POSITIVE(A) NEGATIVE 05/05/2025 3:04 AM CDT [facility] COCAINE METABOLITES (U) NEGATIVE NEGATIVE 05/05/2025 3:04 AM CDT [facility] METHADONE (U) NEGATIVE NEGATIVE 05/05/2025 3:04 AM CDT [facility] OPIATE SCREEN (U) NEGATIVE NEGATIVE 025 3:04 AM CDT [facility] PHENCYCLIDINE PCP (U) NEGATIVE NEGATIVE 05/05/2025 3:04 AM CDT [facility] Comment: NOTE: RESULTS OF THIS DRUG SCREEN SHOULD BE USED FOR MEDICAL PURPOSES ONLY AND NOT FOR LEGAL OR EMPLOYMENT PURPOSES. POSITIVE RESULTS ARE NOT CONFIRMED. MEDICATIONS CONTAINING EPHEDRINE MAY CAUSE FALSE POSITIVE AMPHETAMINE CALL [phone], LAB, TO REQUEST CONFIRMATION TESTING. IF CREATININE IS <40 mg/dL. RECOLLECTION IS SUGGESTED. AMPHETAMINE- 500 NG/ML BARBITURATE- 200 NG/ML BENZODIAZEPINES- 200 NG/ML THC- 50 NG/ML COCAINE- 150 NG/ML METHADONE- 300 NG/ML OPIATE- 300 MG/ML PCP- 25 NG/ML CREATININE (U) 317.0(H) 28 - 217 MG/DL 05/05/2025 3:04 AM CDT [facility] URINE SPECIMEN / Unknown 05/04/2025 11:17 PM CDT us Lourdes Cisneros DO URINE ORDERABLES Fi nal Result [facility] [address] [place] [address], * (ABNORMAL) URINALYSIS (05/04/2025 11:17 PM CDT) Only the most recent of2 resultswithin the time period is included. SPECIMEN TYPE URINE CLEAN CATCH 05/04/2025 11:18 PM CDT [facility] COLOR (U) YELLOW 05/04/2025 11:29 PM CDT [facility] TRANSPARENCY CLEAR 05/04/2025 11:29 PM CDT [facility] SPECIFIC GRAVITY (U) 1.046(H) 1.001 - 1.030 05/04/2025 11:29 PM CDT [facility] U PH 7.0 5.0 - 9.0 05/04/2025 11:29 PM CDT [facility] LEUKOCYTES (U) NEGATIVE NEGATIVE 05/04/2025 11:29 PM CDT [facility] NITRITES NEGATIVE NEGATIVE 05/04/2025 11:29 PM CDT [facility] PROTEIN RANDOM (U) 30(H) <30 MG/DL 05/04/2025 11:29 PM CDT [facility] GLUCOSE (U) NORMAL NORMAL MG/DL 05/04/2025 11:29 PM CDT [facility] KETONES MG/DL (U) 80(A) NEGATIVE MG/DL 05/04/2025 11:29 PM CDT [facility] UROBILINOGEN 3.0(A) NORMAL MG/DL 05/04/2025 11:29 PM CDT [facility] BILIRUBIN (U) NEGATIVE NEGATIVE MG/DL 05/04/2025 11:29 PM CDT [facility] BLOOD (U) NEGATIVE NEGATIVE 05/04/2025 11:29 PM CDT [facility] MUCUS FEW /LPF 05/04/2025 11:29 PM CDT [facility] WBC/HPF 3 <6 /HPF 05/04/2025 11:29 PM CDT [facility] RBC/HPF 2 <6 /HPF 05/04/2025 11:29 PM CDT [facility] SQUAMOUS EPITHELIALS RARE /HPF 05/04/2025 11:29 PM CDT [facility] URINE SPECIMEN OBTAINED BY CLEAN CATCH PROCEDURE / Unknown 05/04/2025 11:17 PM CDT us Supriya CHARLES URINE ORDERABLES Final Resul t [facility] [address] [place] [address], [place] [phone] * URINE BACTERIA CULTURE (05/04/2025 11:17 PM CDT) Only the most recent of2 resultswithin the time period is included. SPEC DESCRIPTION URINE CLEAN CATCH 05/05/2025 9:46 AM CDT [facility] SPECIAL REQUESTS NO SPECIAL REQUEST 05/05/2025 9:46 AM CDT [facility] CULTURE RESULT NO GROWTH 2 DAYS 05/07/2025 6:51 AM CDT [facility] URINE SPECIMEN OBTAINED BY CLEAN CATCH PROCEDURE / Unknown 05/04/2025 11:17 PM CDT 05/05/2025 9:48 AM CDT Nury Espinosa MD MICROBIOLOGY - GENERAL OR DERABLES Final Result [facility] [address] [place] [address], [place] [phone] * TSH W/REFLEX (05/04/2025 10:05 PM CDT) TSH 0.393 0.358 - 3.74 uIU/ML 05/05/2025 1:19 AM CDT [facility] Comment: HIGH DOSES OF BIOTIN MAY INTERFERE WITH THIS TEST RESULT. CORRELATION TO CLINICAL HISTORY AND PRESENTATION RECOMMENDED. FREE T4 NOT INDICATED 05/04/2025 10:0 5 PM CDT Lourdes Cisneros DO LABORATORY Fin al Result Performing Organization Address City/[facility] Co de Phone Number [facility] [address] [place] [address], * ETHANOL (05/04/2025 10:05 PM CDT) ALCOHOL S/P/B <0.003 <0.003 G/DL 05/05/2025 1:19 AM CDT [facility] 05/04/2025 10:0 5 PM CDT Lourdes Cisneros DO LABORATORY Fin al Result [facility] [address] [place] [address], [place] [phone] * (ABNORMAL) ACETAMINOPHEN (05/04/2025 10:05 PM CDT) ACETAMINOPHEN S/P/B <2.0(L) 10.0 - 30.0 MCG/ML 05/05/2025 1:19 AM CDT [facility] Comment: THERAPEUTIC: 10-30 TOXIC: >200 05/04/2025 10:0 5 PM CDT Lourdes Cisneros DO LABORATORY Fin al Result Performing Organization Address City/[facility]/ZIP Co de Phone Number [facility] [address] [place] [address], [place] [phone] * LIPASE (05/04/2025 9:13 PM CDT) Only the most recent of2 resultswithin the time period is included. LIPASE 24 13 - 75 UNITS/L 05/04/2025 10:37 PM CDT [facility] 05/04/2025 9:13 PM CDT us Supriya CHARLES LABORATORY Final Result Performing Organization Address [facility] Co de Phone Number [facility] [address] [place] [address], [place] [phone] * US ABD LIMITED (04/23/2025 8:35 AM CDT) Anatomical Region Laterality Modality Abdomen Ultrasound 04/23/2025 10:0 2 AM CDT Impressions 04/23/2025 10:09 AM CDT IMPRESSION: 1. Partially obscured pancreas. 2. No appreciable acute abnormality. Ordered By: JUSTICE BAPTISTE Interpreted By: Rojas aHrt, 04/23/2025 10:02 AM Narrative 04/23/2025 10:09 AM CDT [address] [address] IMAGING STUDIES: [place] ABD LIMITED DATE: 04/23/2025 7:56 AM HISTORY: Epigastric pain 19-year-old female. Current inpatient. Epigastric pain. Nausea and vomiting since 04/06/2025. Increased pain during vomiting episodes. She reports being evaluated at another hospital and was given medications but reports medications have not improved her symptoms. COMPARISON: CT abdomen pelvis with contrast 04/22/2025. DISCUSSION: Liver echogenicity within normal limits. Liver length of 15.9 cm (on CT yesterday, hepatic craniocaudal length of 16 cm). No focal hepatic mass or intrahepatic biliary ductal dilatation. Color doppler imaging of the hepatic veins, inferior vena cava and portal vein and pulse Doppler imaging of the portal vein. Appropriate flow direction in the portal vein and normal color Doppler imaging of the interrogated venous system. Adequately distended gallbladder. No apparent gallstones or gallbladder sludge. Gallbladder wall is normal at 2.2 mm thickness. No sonographic Cedillo's sign. Common bile duct is normal at 4.4 mm diameter. Pancreatic head and tail are partially obscured by bowel. No appreciable abnormality of the visualized pancreas. Right kidney 12 x 3.4 x 5.6 cm. No hydronephrosis or apparent renal mass. Normal color Doppler signal within the right kidney. Procedure Note Rojas Hart MD - 04/23/[address] [address] IMAGING STUDIES: US ABD LIMITEDDATE: 04/23/2025 7:56 AM HISTORY: Epigastric pain 19-year-old female. Current inpatient.Epigastric pain. Nausea and vomiting since 04/06/2025. Increased painduring vomiting episodes. She reports being evaluated at another hospitaland was given medications but reports medications have not improved hersymptoms. COMPARISON: CT abdomen pelvis with contrast 04/22/2025. DISCUSSION: Liver echogenicity within normal limits. Liver length of 15.9 cm (on CTyesterday, hepatic craniocaudal length of 16 cm). No focal hepatic mass orintrahepatic biliary ductal dilatation. Color doppler imaging of the hepatic veins, inferior vena cava and portalvein and pulse Doppler imaging of the portal vein. Appropriate flowdirection in the portal vein and normal color Doppler imaging of theinterrogated venous system. Adequately distended gallbladder. No apparent gallstones or gallbladdersludge. Gallbladder wall is normal at 2.2 mm thickness. No sonographicMurphy's sign. Common bile duct is normal at 4.4 mm diameter. Pancreatic head and tail are partially obscured by bowel. No appreciableabnormality of the visualized pancreas. Right kidney 12 x 3.4 x 5.6 cm. No hydronephrosis or apparent renal mass.Normal color Doppler signal within the right kidney. IMPRESSION: 1. Partially obscured pancreas. 2. No appreciable acute abnormality. Ordered By: JUSTICE BAPTISTE Interpreted By: Rojas Hart, 04/23/2025 10:02 AM Justice Baptiste DO ULTRASOUND Final Result * LACTIC ACID (04/22/2025 5:47 PM CDT) LACTIC ACID VENOUS 1.5 0.4 - 2.0 MMOL/L 04/22/2025 6:25 PM CDT [facility] 04/22/2025 5:47 PM CDT Nury Espinosa MD LABORATORY Final Res ult [facility] [address] [place] [address], [place] [phone] * (ABNORMAL) PROCALCITONIN (PCT) (04/22/2025 4:57 PM CDT) PROCALCITONIN 0.69(H) 0.00 - 0.49 NG/ML 04/22/2025 5:49 PM CDT [facility] 04/22/2025 4:57 PM CDT us Nury Espinosa MD LABORATORY Final Res ult [facility] [address] [place] [address], [place] [phone] * (ABNORMAL) COMPREHENSIVE METABOLIC PANEL (04/22/2025 4:57 PM CDT) [facility] GLUCOSE 89 70 - 99 MG/DL 04/22/2025 5:31 PM CDT [facility] BUN 10 7 - 18 MG/DL 04/22/2025 5:31 PM CDT [facility] CREATININE S/P/B 0.81 0.55 - 1.02 MG/DL 04/22/2025 5:31 PM CDT [facility] SODIUM S/P/B 139 136 - 145 MMOL/L 04/22/2025 5:31 PM CDT [facility] POTASSIUM S/P/B 3.8 3.5 - 5.1 MMOL/L 04/22/2025 5:31 PM CDT [facility] CHLORIDE S/P/B 111 97 - 115 MMOL/L 04/22/2025 5:31 PM CDT [facility] CO2 22.5 21 - 32 MMOL/L 04/22/2025 5:31 PM CDT [facility] CALCIUM S/P/B 9.0 8.5 - 10.1 MG/DL 04/22/2025 5:31 PM CDT [facility] BILIRUBIN TOTAL S/P/B 1.0 0.2 - 1.2 MG/DL 04/22/2025 5:31 PM CDT [facility] Comment: THIS ASSAY IS NOT RECOMMENDED FOR PATIENTS UNDERGOING TREATMENT WITH ELTROMBOPAG DUE TO THE POTENTIAL FOR FALSELY ELEVATED RESULTS. TOTAL PROTEIN S/P/B 7.2 6.4 - 8.2 G/DL 04/22/2025 5:31 PM CDT [facility] ALBUMIN S/P/B 3.3(L) 3.4 - 5.0 G/DL 04/22/2025 5:31 PM CDT [facility] AST 10(L) 15 - 37 U/L 04/22/2025 5:31 PM CDT [facility] ALT 14 14 - 55 U/L 04/22/2025 5:31 PM CDT [facility] ALKALINE PHOSPHATASE S/P/B 48(L) 50 - 136 U/L 04/22/2025 5:31 PM CDT [facility] ANION GAP 5.5 2 - 10 MMOL/L 04/22/2025 5:31 PM CDT [facility] BUN CREATININE RATIO 12.3 6 - 26 04/22/2025 5:31 PM CDT [facility] A/G RATIO 0.8(L) 1.0 - 2.0 RATIO 04/22/2025 5:31 PM T [facility] GFR ESTIMATE >90 >90 ML/MIN/1.7 3 M2 04/22/2025 5:31 PM T [facility] Comment: NOTE: eGFR is not calculated for patients <18 years of age or gender unknown. This is an estimated GFR calculation using the new CKD EPI creatinine equation without race and so does not require a correction factor for race. This estimated GFR should not be used for calculating drug doses. 04/22/2025 4:57 PM CDT us Nury Espinosa MD LABORATORY Final Res ult [facility] [address] [place] [address], [place] [phone] * (ABNORMAL) C-REACTIVE PROTEIN (04/22/2025 4:57 PM CDT) C-REACTIVE PROTEIN 11.10(H) <0.29 mg/dL 04/22/2025 6:25 PM CDT [facility] 04/22/2025 4:57 PM CDT Justice Baptiste DO LABORATORY Final Result [facility] [address] [place] [address], * ECG 12 lead (04/22/2025 2:59 PM CDT) 04/22/2025 2:59 PM CDT Narrative [facility] ([facility] - 04/23/2025 8:06 AM CDT [address] Test Date: 2025-04-22 Pat Name: RADHA LAI Department: 41 Room: [facility] 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 * (ABNORMAL) SED RATE, ERYTHROCYTE (ESR) (04/22/2025 1:53 PM CDT) ESR 34(H) <20 MM/HR 04/22/2025 6:22 PM CDT [facility] Comment:Testing performed on [employer] iSED. 04/22/2025 1:53 PM CDT us Justice Baptiste DO LABORATORY Final Result Performing Organization Address City/[facility]/ZIP Co de Phone Number [facility] [address] [place] [address], [place] [phone] from Last 3 Months Insurance [place] Advance Directives * Full Code (Latest Code Status on File) Date Activated Date Inactivated Comments 05/05/2025 1:17 AM 05/07/2025 3:24 PM * Full Code Date Activated Date Inactivated Comments 04/22/2025 4:50 PM 04/23/2025 2:22 PM Care Teams Hostel Parent Relationship Specialty Start Date End Date None, Provider, MD PCP - General UNKNOWN PHYSICIAN SPECIALTY 04/22/25
--- OUTSIDE RECORDS SUMMARY | 2025-07-22 15:23 | XMS_ITS | Clinical Summary ---
Author Organization [facility] Address [address] [place] [address] Care Team Providers Care Timber Cruiser Name Role Phone Clare Bellamy MD Primary Care Provider [phone] Source Comments [facility],non-owned Affiliates and Associated Physician Practices is amultiple site organization consisting of ambulatory clinics and hospital sitesin [place], [place]. This disclosure is being madepursuant to the Care Everywhere program and may not contain all information available regarding this patient. Last updated 18.[facility] Allergies Active Allergy Reactions Criticality Noted Date Comments [place] Angioedema High 03/15/2020 Medications * Be aware that medications may not be up to date on this document. Alwaysverify current medications with the patient. 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% for age Immunizations Immunization Administration Dates Next Due DTAP/HEP B/IPV 02/06/2005 DTaP VACCINE IM (6wk-6yrs) 10/10/2009,,2004, 5 HEP A PEDS 2 DOSE 09/08/2007,11/11/2005 HEP B VACCINE, PED/ADOL 2004,2004 HIB-PRP-T 4 DOSE 08/14/2005, 5,2004, 5 Human Papilloma Virus Vaccine 06/14/2017, 017 MENINGOCOCAL MENINGITIS 11/22/2015 MENINGOCOCCAL ACWY (MCV4P) VAC IM 03/24/2021 MMR 11/02/2008,08/14/2005 PNEUMOCOCCAL PCV7 CONJ, PEDS 08/14/2005, 02/06/2005,2004, 5 POLIO IPV 10/10/2009,2004,2004 TDAP (7yrs+) 11/22/2015 VARICELLA 11/02/2008,08/14/2005 Family History Medical History Relation Name Comments None Known Father None Known Maternal Grandfather None Known Maternal Grandmother None Known Mother CAD (Coronary Artery Disease) Paternal Grandfather None Known Paternal Grandmother Relation Name Status Comments Father Alive Maternal Grandfather Alive Maternal Grandmother Alive Mother Alive Paternal Grandfather Paternal Grandmother Alive Social History Tobacco Use Types Packs/Day Years Used Date Smoking Tobacco: Never Smokeless Tobacco: Never Alcohol Use Standard Drinks/Week Comments Yes 0 (1 standard drink = 0.6 oz pure alcohol) tried a cooler once a couple of years ago when visiting dad PHQ-2 Answer Date Recorded PHQ2 TOTAL SCORE 0 03/24/2021 Comments Unknown Sex and Gender Information Value Date Recorded Sex Assigned at Not on file 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 Gender Identity Not on file Sexual Orientation Not on file Last Filed Vital Signs Vital Sign Reading Time Taken Comments Blood Pressure 116/76 03/24/2021 1:12 PM CDT Pulse 88 03/24/2021 1:12 PM CDT Temperature 37.2 C (99 F) 03/24/2021 1:12 PM CDT Respiratory Rate 18 03/24/2021 1:12 PM CDT Oxygen Saturation - - Inhaled Oxygen Concentration - - Weight 116.6 kg (257 lb) 03/24/2021 1:12 PM CDT Height 167 cm (5' 5.75) 03/24/2021 1:12 PM CDT Body Mass Index 41.8 03/24/2021 1:12 PM CDT Plan of Treatment Health Maintenance Due Date Last Done Comments HIV SCREENING 2019 MENINGOCOCCAL (Group B) VACC INE SHARED DECISION-MAKING (1 of 2 - Standard) 2020 CHLAMYDIA/GONORRHEA SCREENING 03/15/2021 03/15/2020 HEPATITIS C SCREENING 07/30/2022 DEPRESSION SCREENING 07/26/2024 COVID-19 VACCINE (1 - 2024-2 6 season) 2025 INFLUENZA VACCINE (#1) 2025 DTAP/TDAP/TD VACCINES (7 - T d or Tdap) 11/21/2025 11/22/2015, 10/10/2009, 11/11/2005, Additional history exists ZOSTER VACCINE (1 of 2) 2054 HEPATITIS B VACCINE Completed 02/06/2005, 2004, 2004 HIB VACCINE Completed 08/14/2005, 01/23, 2004, Additional history exists PNEUMOCOCCAL VACCINE Completed 08/14/2005, 02/06/2005, 2004, Additional history exists HPV VACCINE Completed 06/14/2017, 11/27/2016 MENINGOCOCCAL GROUPS A/C/Y/W VACCINE Completed 03/24/2021, 11/22/2015 Procedures Procedure Name Priority Date/Time Associated Diagnosis Comments CHLAMYDIA + GC AMPLIFIED PROBE Routine 03/15/2020 4:59 PM CDT Routine screening for STI (sexually transmitted infection) from Last 3 Months or Most Recently Relevant to Health Maintenance Results * CHLAMYDIA + GC AMPLIFIED PROBE (03/15/2020 4:59 PM CDT) Chlamydia HUI Urine Negative Negative [facility] INSURANCE BILL GC HUI Urine Negative Negative [facility] INSURANCE BILL Microbiology URINE / Unknown 03/15/2020 4 :59 PM CDT 03/15/2020 Narrative Resulting Agency Comment Lab Testing performed at: [address] [phone] Clare Bellamy MD LAB - MICROBIOLOGY ORDERAB LES Final Result [facility] INSURANCE BILL [address] [place] [phone] from Last 3 Months or Most Recently Relevant to Health Maintenance Insurance MEDICAID - [place] [facility] Care Teams Timber Cruiser Relationship Specialty Start Date End Date Clare Bellamy MD PCP - General Pediatrics 02/24/19
[2025-07-22 15:40] VITALS: BP 148/91; PULSE 68; RESP 18; TEMP 37; O2SAT 100
[2025-07-22 17:46] VITALS: BP 168/99; PULSE 62; TEMP 37.4; O2SAT 98
[2025-07-22 18:57] VITALS: BP 142/72; PULSE 60; RESP 18; O2SAT 100
--- NOTE | 2025-07-22 18:59 | ED.NAVMDI ---
HPI - Nausea/Vomiting/Diarrhea General Chief complaint: Nausea/Vomiting/Diarrhea Stated complaint: vomiting 2 days Time Seen by Provider: 07/22/25 18:51 History of Present Illness HPI Narrative: Patient is a 19-year-old female who presents to the ER with nausea and vomiting that started on Wednesday, 5 days ago. She reports she has had these symptoms in the past. Patient endorses intermittent marijuana use. She denies any recent fevers, urinary symptoms, back pain, sore throat. Patient does endorse mild shortness of breath with vomiting. She endorses a history of cyclic vomiting. Patient reports she does not believe she has had a bowel movement in 5 days. Related Data Allergies Allergy/AdvReac Type Severity Reaction Status Date / Time No Known Allergies Allergy Verified 07/22/25 20:18 Review of Systems Review of Systems: All systems reviewed & are unremarkable except as noted in HPI and below PMFSH Past Medical History Medical History Healthy female adult Surgical History Surgical History No history of previous surgery Exam Narrative: GENERAL: Ill-appearing, well-nourished, non-toxic, in mild distress. HEAD: Normocephalic, atraumatic. NECK: Supple. No adenopathy, no masses. RESPIRATORY: Airway patent, respirations nonlabored. Clear to auscultation bilaterally, no rales, rhonchi, wheezing. CARDIOVASCULAR: Regular rate and rhythm without murmurs, rubs, or gallops. Peripheral pulses 2+ and equal bilaterally. ABDOMINAL: Soft, nontender, nondistended. Normoactive BS. MUSCULOSKELETAL: Moves all extremities. Strength/ROM intact without gross deformities. SKIN: Warm, dry, normal color. No rashes. NEURO: A&O X3. Speech clear. Cranial nerves II-XII intact. No ataxic movements. PSYCHIATRIC: Appropriate mood and affect. Normal interaction. Course Vital Signs Vital signs: Vital Signs Temperature 37.0 C 07/22/25 15:40 Pulse Rate 68 07/22/25 15:40 Respiratory Rate 18 07/22/25 15:40 Blood Pressure 148/91 H 07/22/25 15:40 Pulse Oximetry 100 07/22/25 15:40 Oxygen Delivery Room Air 07/22/25 15:40 Temperature 37.4 C 07/22/25 17:46 Pulse Rate 62 07/22/25 17:46 Respiratory Rate 18 07/22/25 15:40 Blood Pressure 168/99 H 07/22/25 17:46 Pulse Oximetry 98 07/22/25 17:46 Oxygen Delivery Room Air 07/22/25 15:40 MDM MDM Narrative Medical decision making narrative: Patient is a 19-year-old female who presents to the ER with nausea and vomiting that started on Wednesday, 5 days ago. She reports she has had these symptoms in the past. Patient endorses intermittent marijuana use. She denies any recent fevers, urinary symptoms, back pain, sore throat. Patient does endorse mild shortness of breath with vomiting. She endorses a history of cyclic vomiting. Patient reports she does not believe she has had a bowel movement in 5 days. Labs Ordered: CBC, CMP, UDS, UA, lipase Imaging Ordered: KUB Medications Ordered: 1 L normal saline IV bolus, Toradol 15 mg IV, Haldol IM Results: Patient's KUB indicates Bowel gas pattern is normal. No significant fecal impaction. No abnormal soft tissue densities or calcific densities are seen. Diagnosis: Cannabinoid hyperemesis, mild dehydration Patient Education/Shared MDM: There are no indications that patient's symptoms are due to fecal impaction or an infectious process. Results of lab work and imaging shared with patient and her mother. She endorses improvement of symptoms following medication administration. Patient strongly advised to maintain hydration status upon discharge and follow-up with her PCP for further evaluation. She will be discharged home with a prescription for Reglan, and capsaicin lotion. Patient was strongly advised to refrain from further marijuana use. Strict return precautions provided. Patient verbalized understanding and is in agreement with plan. Vital signs stable at time of discharge. All questions answered. Differential Diagnosis Differential Diagnosis: Cannabinoid hyperemesis, drug induced nausea and vomiting, gastroenteritis Lab Data [facility] Lab Attestation statement: I personally reviewed the patient's lab results. 07/22/25 19:39 07/22/25 19:39 Labs: Lab Results 07/22/25 Range/Units 19:39 WBC 7.9 (4.5-10.0) K/mm3 RBC 4.32 (4.2-5.4) M/mm3 Hgb 13.2 (12.0-15.0) g/dL Hct 38.6 (37.0-47.0) % MCV 89.4 (80-100) fl MCH 30.6 (26-34) pg MCHC 34.2 (32-36) g/dl RDW 12.0 (11.5-14.5) % Plt Count 235 (150-375) k/mm3 MPV 11.6 H (7.4-10.4) fl Immature Gran % (Auto) 0.4 (0-0.5) % Neut % (Auto) 78.2 H (45.5-73.1) % Lymph % (Auto) 11.6 L (18.3-44.2) % [place] % (Auto) 9.7 H (2.6-8.5) % Eos % (Auto) 0.0 (0-4.4) % Baso % (Auto) 0.1 L (0.2-1.2) % Lymph # (Auto) 0.92 (0.9-3.2) K/mm3 [place] # (Auto) 0.8 H (0.1-0.6) K/mm3 Eos # (Auto) 0.0 (0-0.3) K/mm3 Baso # (Auto) 0.0 (0.0-0.1) K/mm3 Abs Immat Gran (auto) 0.03 (0.00-0.031) K/mm3 Absolute Neuts (auto) 6.2 (1.3-6.7) K/mm3 Absolute Nucleated RBC 0.000 (0.0-0.012) K/mm3 Nucleated RBC % 0.0 (0.0-0.2) % Sodium 136 L (137-145) mmol/L Potassium 3.5 (3.4-5.0) mmol/L Chloride 105 (98-107) mmol/L Carbon Dioxide 21 L (22-30) mmol/L Anion Gap 10 (4-12) mmol/L BUN 12 D (7-17) mg/dL Creatinine 0.70 (0.7-1.0) mg/dL Estim Creat Clear Calc 121 ml/min Estimated GFR > 60 (59 - ) Glucose 96 (65-110) mg/dL Calcium 9.5 (8.4-10.2) mg/dL Total Bilirubin 1.6 H (0.2-1.3) mg/dL AST 30 (14-36) U/L ALT 17 (6-35) U/L Alkaline Phosphatase 64 (38-126) U/L Total Protein 8.2 (6.3-8.2) g/dL Albumin 4.5 (3.5-5.1) g/dL Lipase 84 (23-300) U/L Urine Color Dark yellow (Yellow) Urine Appearance Turbid H (Clear) Urine pH >=9.0 H (5.0-9.0) Ur Specific [place] 1.030 (1.001-1.035) Urine Protein 1+ H (Negative) mg/dL Urine Glucose (UA) Negative (Negative) mg/dL Urine Ketones 2+ H (Negative) mg/dL Ur Blood (Man) Negative (Negative) Urine Nitrate Negative (Negative) Urine Bilirubin Negative (Negative) Urine Urobilinogen 1.0 (<2.0) mg/dL Leukocyte Esterase Rfl Trace H (Negative) SHERRILL/UL Urine RBC 0-2 (0-2) /hpf Urine WBC 0-5 (0-3) /hpf Ur Squamous Epith Cells Occasional (Few) /hpf Urine Bacteria Rare /hpf Urine Casts 0-2 Urine Opiates Screen Negative (Negative) Urine Methadone Screen Negative (Negative) Ur Barbiturates Screen Negative (Negative) Ur Phencyclidine Scrn Negative (Negative) Ur Amphetamine Screen Negative (Negative) U Benzodiazepines Scrn Negative (Negative) Urine Cocaine Screen Negative (Negative) U Cannabinoids Screen Positive A (Negative) Imaging Data Attestation: I personally reviewed and interpreted this imaging study as follows: Radiologist's impression: ITS Impressions Abdomen X-Ray 07/22/25 19:13 IMPRESSION: 1. Supine AP view of abdomen shows no significant focal abnormalities. Discharge Plan Discharge Clinical Impression: Drug-induced nausea and vomiting, Dehydration, Cannabinoid hyperemesis syndrome Patient Disposition: Home Condition: Stable Instructions: Antibiotic Form, Gastroenteritis (ED) Additional Instructions: Please return to the ER with any worsening symptoms. Follow-up with primary care provider in the next 2-3 days for re-evaluation. Take all medications as prescribed, including regularly scheduled medications. If your symptoms return, please take Reglan for nausea, take a hot shower, and rub capsaicin lotion on your abdomen. Patient Language: Palauan Prescriptions: New metoclopramide HCl [Reglan] 10 mg tablet 10 mg PO Q6H PRN (Reason: nausea and vomiting) Qty: 30 0RF capsaicin 0.1 % cream 1 applic topical TID 5 Days Qty: 1 0RF Rx Instructions: do not wash area for at least 30 min after application No Action phenazopyridine [Pyridium] 200 mg tablet 200 mg PO TID 3 Days Qty: 9 0RF sulfamethoxazole-trimethoprim 800-160 mg tablet 1 tablet PO Q12H 5 Days Qty: 10 0RF nitrofurantoin monohyd/m-cryst [Macrobid] 100 mg capsule 100 mg PO Q12H 5 Days Qty: 10 0RF Rx Instructions: must administer with a meal/food dicyclomine 20 mg tablet 20 mg PO QID Qty: 20 0RF ondansetron 4 mg tablet,disintegrating 4 mg PO Q6H PRN (Reason: nausea and vomiting) Qty: 10 0RF famotidine [Pepcid] 20 mg tablet 20 mg PO DAILY Qty: 10 0RF metoclopramide HCl [Reglan] 10 mg tablet 10 mg PO Q6H PRN (Reason: nausea and vomiting) Qty: 14 0RF potassium chloride 20 mEq packet 40 meq PO DAILY Qty: 6 0RF Follow-up/Referrals: Andrei Kamara MD [Physician, Family Practice] PHYSICIAN,SULFONATION EQUIPMENT OPERATOR [Primary Care Provider, Internal Medicine] Time of Disposition: 21:28
--- OUTSIDE RECORDS SUMMARY | 2025-07-22 19:18 | XMS_ITS | Clinical Summary ---
Author Organization [facility] Address [address] [place] [id number] Care Team Providers Care Preschool Teacher'S Assistant Name Role Phone None, Provider MD Primary Care Provider Unavaila ble Allergies No known active allergies Medications No known medications Active Problems Problem Noted Date Diagnosed Date Intractable vomiting with nausea 05/05/2025 Nausea & vomiting 04/22/2025 Encounters Date Type Department Care Team Description 05/04/2025 8:59 PM CDT - 05/07/2025 1:18 PM CDT Hospital Encounter [facility] [place] [address] Petr Talbot MD Nash, Anne N, MD Nausea Discharge Disposition: Home or Self Care (Routine Discharge) 05/04/2025 Travel 04/22/2025 1:44 PM CDT - 04/23/2025 12:22 PM CDT Hospital Encounter [facility] Med/Surg [address]th [place] [address] Supriya George PA [place], Stuart, Vomiting Discharge Disposition: Home or Self Care (Routine Discharge) 04/22/2025 Travel from Last 3 Months Social History Tobacco Use Types Packs/Day Years Used Date Smoking Tobacco: Never Smokeless Tobacco: Never Tobacco Cessation:Counseling Given: Not Answered Alcohol Use Standard Drinks/Week Comments Never 0 (1 standard drink = 0.6 oz pur e alcohol) [facility] Utilities Answer Date Recorded In the past 12 months has [employer] electric, gas, oil, or water company threatened [...] any time in the past 12 m [facility], were you homeless or living in a jail (including now)? 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 [facility] GLUCOSE 88 70 - 99 MG/DL 05/07/2025 5:55 AM CDT [facility] BUN 7 7 - 18 MG/DL 05/07/2025 5:55 AM CDT [facility] CREATININE S/P/B 0.75 0.55 - 1.02 MG/DL 05/07/2025 5:55 AM CDT [facility] SODIUM S/P/B 134(L) 136 - 145 MMOL/L 05/07/2025 5:55 AM CDT [facility] POTASSIUM S/P/B 3.5 3.5 - 5.1 MMOL/L 05/07/2025 5:55 AM CDT [facility] CHLORIDE S/P/B 98 97 - 115 MMOL/L 05/07/2025 5:55 AM CDT [facility] CO2 26.9 21 - 32 MMOL/L 05/07/2025 5:55 AM CDT [facility] CALCIUM S/P/B 9.4 8.5 - 10.1 MG/DL 05/07/2025 5:55 AM CDT [facility] ANION GAP 9.1 2 - 10 MMOL/L 05/07/2025 5:55 AM CDT [facility] BUN CREATININE RATIO 9.4 6 - 26 05/07/2025 5:55 AM CDT [facility] GFR ESTIMATE >90 >90 ML/MIN/1.7 3 M2 05/07/2025 5:55 AM CDT [facility] Comment: NOTE: eGFR is not calculated [...] Lourdes Cisneros DO LABORATORY Fin al Result [facility] [address] [address], [place] [phone] * (ABNORMAL) CBC W/DIFF AUTOMATED (05/07/2025 5:09 AM CDT) Only the most recent of6 resultswithin the time period is included. WBC 8.21 4.5 - 13.0 x10'3/uL 05/07/2025 5:38 AM CDT [facility] RBC 3.84(L) 4.20 - 5.40 x10'6/uL 05/07/2025 5:38 AM CDT [facility] HGB 11.7(L) 12.0 - 16.0 G/DL 05/07/2025 5:38 AM CDT [facility] HCT 34.2(L) 38.0 - 48.0 % 05/07/2025 5:38 AM CDT [facility] MCV 89.1 81.0 - 99.0 FL 05/07/2025 5:38 AM CDT [facility] MCH 30.5 27.0 - 31.0 PG 05/07/2025 5:38 AM CDT [facility] MCHC 34.2 32.0 - 36.0 G/DL 05/07/2025 5:38 AM CDT [facility] RDW 11.9 11.5 - 14.5 % 05/07/2025 5:38 AM CDT [facility] PLT 278 130 - 400 x10'3/uL 05/07/2025 5:38 AM CDT [facility] MPV 11.1 9.3 - 12.2 FL 05/07/2025 5:38 AM CDT [facility] DIFFERENTIAL TYPE AUTOMATED DIFFERENTIAL 05/07/2025 5:38 AM CDT [facility] NEUTROPHILS % 81.3 % 05/07/2025 5:38 AM CDT [facility] LYMPHOCYTES % 10.0 % 05/07/2025 5:38 AM CDT [facility] MONOCYTES % 8.2 % 05/07/2025 5:38 AM CDT [facility] EOSINOPHILS 0.2 % 05/07/2025 5:38 AM CDT [facility] BASOPHILS 0.1 % 05/07/2025 5:38 AM CDT [facility] IMMATURE GRANS % 0.2 % 05/07/20 5:38 AM CDT [facility] ABS. NEUTROPHILS 6.67 1.80 - 8.00 x10'3/uL 05/07/2025 5:38 AM CDT [facility] ABS. LYMPHOCYTES 0.82(L) 1.20 - 5.20 x10'3/uL 05/07/2025 5:38 AM CDT [facility] ABS. MONOCYTES 0.67 0.24 - 0.86 x10'3/uL 05/07/2025 5:38 AM CDT [facility] ABS. EOSINOPHILS 0.02(L) 0.04 - 0.36 x10'3/uL 05/07/2025 5:38 AM CDT [facility] ABS. BASOPHILS 0.01 0.01 - 0.08 x10'3/uL 05/07/2025 5:38 AM CDT [facility] ABS. IMMATURE GRANULOCYTES 0.02 0.00 - 0.49 x10'3/uL 05/07/2025 5:38 AM CDT [facility] 05/07/2025 5:09 AM CDT Lourdes Cisneros DO LABORATORY Fin al Result [facility] [address] [place], [place] [address], * MAGNESIUM (05/06/2025 4:40 AM CDT) Only the most recent of4 resultswithin the time period is included. MAGNESIUM 1.9 1.8 - 2.4 MG/DL 05/06/2025 5:29 AM CDT [facility] Comment:SLIGHT HEMOLYSIS, RE SULT MAY BE AFFECTED. 05/06/2025 4:40 AM CDT [facility] LABOR[facility] Fin al Result [facility] [address] [place] [address], * PHOSPHORUS, INORGANIC PHOSPHATE (05/05/2025 2:34 PM CDT) Only the most recent of2 resultswithin the time period is included. [facility] PHOSPHORUS 3.8 2.5 - 4.9 MG/DL 05/05/2025 3:09 PM CDT [facility] 05/05/2025 2:34 PM CDT us Lourdes Cisneros DO LABORATORY Fin al Result [facility] [address] [place] [address], * GI PANEL PCR - STOOL (05/05/2025 1:52 PM CDT) [facility] CAMPYLOBACTER PCR (STOOL) NOT DETECTED NOT DETECTED 05/05/2025 4:35 PM CDT [facility] PLESIOMONAS SHIGELLOIDES PCR (STOOL) NOT DETECTED NOT DETECTED 05/05/2025 4:35 PM CDT [facility] SALMONELLA PCR (STOOL) NOT DETECTED NOT DETECTED 05/05/2025 4:35 PM CDT [facility] VIBRIO PCR (STOOL) NOT DETECTED NOT DETECTED 05/05/2025 4:35 PM CDT [facility] VIBRIO CHOLERAE PCR (STOOL) NOT DETECTED NOT DETECTED 05/05/2025 4:35 PM CDT [facility] YERSINIA ENTEROCOLITICA PCR (STOOL) NOT DETECTED NOT DETECTED 05/05/2025 4:35 PM CDT [facility] ENTEROAGGREGATIVE ECOLI PCR (STOOL) NOT DETECTED NOT DETECTED 05/05/2025 4:35 PM CDT [facility] ENTEROPATHOGENIC ECOLI PCR (STOOL) NOT DETECTED NOT DETECTED 05/05/2025 4:35 PM CDT [facility] ENTEROTOXIGENIC ECOLI PCR (STOOL) NOT DETECTED NOT DETECTED 05/05/2025 4:35 PM CDT [facility] SHIGA LIKE TOXIN ECOLI PCR (STOOL) NOT DETECTED NOT DETECTED 05/05/2025 4:35 PM CDT [facility] SHIG/ENTEROINVASIVE ECOLI PCR (STOOL) NOT DETECTED NOT DETECTED 05/05/2025 4:35 PM CDT [facility] CRYPTOSPORIDIUM PCR (STOOL) NOT DETECTED NOT DETECTED 05/05/2025 4:35 PM CDT [facility] CYCLOSPORA CAYETANENSIS PCR (STOOL) NOT DETECTED NOT DETECTED 05/05/2025 4:35 PM CDT [facility] ENTAMOEBA HISTOLYTICA PCR (STOOL) NOT DETECTED NOT DETECTED 05/05/2025 4:35 PM CDT [facility] GIARDIA LAMBLIA PCR (STOOL) NOT DETECTED NOT DETECTED 05/05/2025 4:35 PM CDT [facility] ADENOVIRUS F40/41 PCR (STOOL) NOT DETECTED NOT DETECTED 05/05/2025 4:35 PM CDT [facility] ASTROVIRUS PCR (STOOL) NOT DETECTED NOT DETECTED 05/05/2025 4:35 PM CDT [facility] NOROVIRUS GI/GII PCR (STOOL) NOT DETECTED NOT DETECTED 05/05/2025 4:35 PM CDT [facility] ROTAVIRUS A PCR (STOOL) NOT DETECTED NOT DETECTED 05/05/2025 4:35 PM CDT [facility] SAPOVIRUS PCR (STOOL) NOT DETECTED NOT DETECTED 05/05/2025 4:35 PM CDT [facility] STOOL SPECIMEN / Unknown 05/05/2025 1:52 PM CDT us Cecilio Aiken MD MICROBIOLOGY - GENERAL ORDERAB LES Final Result [facility] [address] [place] [address], * CLOSTRIDIUM DIFFICILE (05/05/2025 1:52 PM CDT) [facility] ANTIGEN NEGATIVE NEGATIVE 05/05/2025 4:13 PM CDT [facility] C DIFFICILE TOXIN A&B (STOOL) NEGATIVE NEGATIVE 05/05/2025 4:13 PM CDT [facility] COMMENT GDH NEGATIVE/TOXI N A & B NEGATIVE: NEGATIVE FOR TOXIGENIC C. DIFFICILE. 05/05/2025 4:13 PM CDT [facility] STOOL SPECIMEN / Unknown 05/05/2025 1:52 PM CDT Cecilio Aiken MD BODY FLUIDS AND STOOLS ORDERAB LES Final Result Performing Organization Address City/[facility]/ZIP Co de Phone Number [facility] [address] [place] [phone], * LACTIC ACID W REFLEX (SEPSIS) (05/05/2025 4:27 AM CDT) Only the most recent of6 resultswithin the time period is included. LACTIC ACID VENOUS 1.8 0.4 - 2.0 MMOL/L 05/05/2025 5:08 AM CDT [facility] 05/05/2025 4:27 AM CDT Supriya CHARLES LABORATORY Final Result [facility] [address] [place] [address], [place] [phone] * RESPIRATORY PCR PANEL 2 (05/05/2025 2:15 AM CDT) [facility] ADENOVIRUS PCR (RESP) NOT DETECTED NOT DETECTED 05/05/2025 3:32 AM CDT [facility] CORONAVIRUS 229E PCR (RESP) NOT DETECTED NOT DETECTED 05/05/2025 3:32 AM CDT [facility] CORONAVIRUS HKU1 PCR (RESP) NOT DETECTED NOT DETECTED 05/05/2025 3:32 AM CDT [facility] CORONAVIRUS NL63 PCR (RESP) NOT DETECTED NOT DETECTED 05/05/2025 3:32 AM CDT [facility] CORONAVIRUS OC43 PCR (RESP) NOT DETECTED NOT DETECTED 05/05/2025 3:32 AM CDT [facility] METAPNEUMOVIRUS PCR (RESP) NOT DETECTED NOT DETECTED 05/05/2025 3:32 AM CDT [facility] RHINOVIRUS/ENTEROV IRUS PCR (RESP) NOT DETECTED NOT DETECTED 05/05/2025 3:32 AM CDT [facility] INFLUENZA A PCR (RESP) NOT DETECTED NOT DETECTED 05/05/2025 3:32 AM CDT [facility] INFLUENZA B PCR (RESP) NOT DETECTED NOT DETECTED 05/05/2025 3:32 AM CDT [facility] PARAINFLUENZA 1 PCR (RESP) NOT DETECTED NOT DETECTED 05/05/2025 3:32 AM CDT [facility] PARAINFLUENZA 2 PCR (RESP) NOT DETECTED NOT DETECTED 05/05/2025 3:32 AM CDT [facility] PARAINFLUENZA 3 PCR (RESP) NOT DETECTED NOT DETECTED 05/05/2025 3:32 AM CDT [facility] PARAINFLUENZA 4 PCR (RESP) NOT DETECTED NOT DETECTED 05/05/2025 3:32 AM CDT [facility] RSV PCR (RESP) NOT DETECTED NOT DETECTED 05/05/2025 3:32 AM CDT [facility] B PARAPERTUSIS PCR (RESP) NOT DETECTED NOT DETECTED 05/05/2025 3:32 AM CDT [facility] BORDETELLA PERTUSSIS PCR (RESP) NOT DETECTED NOT DETECTED 05/05/2025 3:32 AM CDT [facility] CHLAMYDOPHILA PNEUMONIAE PCR (RESP) NOT DETECTED NOT DETECTED 05/05/2025 3:32 AM CDT [facility] MYCOPLASMA PNEUMONIAE PCR (RESP) NOT DETECTED NOT DETECTED 05/05/2025 3:32 AM CDT [facility] CORONAVIRUS SARS COV 2 PCR (RESP) NOT DETECTED NOT DETECTED 05/05/2025 3:32 AM CDT [facility] NASOPHARYNGEAL SWAB / Unknown 05/05/2025 2:15 AM CDT Lourdes Cisneros DO MICROBIOLOGY - GENE RAL ORDERABLES Final Result [facility] [address] [place] [address], * CULTURE, BACTERIA, BLOOD (05/05/2025 2:06 AM CDT) Only the most recent of4 resultswithin the time period is included. SPEC DESCRIPTION BLOOD 05/05/2025 12:32 AM CDT [facility] SPECIAL REQUESTS NO SPECIAL REQUEST 05/05/2025 12:32 AM CDT [facility] CULTURE RESULT NO GROWTH 5 DAYS 05/10/2025 2:44 AM CDT [facility] BLOOD SPECIMEN OBTAINED FOR BLOOD CULTURE / Unknown 05/05/2025 2:06 AM CDT 05/05/2025 2:17 AM CDT Lourdes Cisneros DO MICROBIOLOGY - GENE RAL ORDERABLES Final Result Performing Organization Address [facility]/ZIP Co de Phone Number [facility] [address] [place] [address], [place] [phone] * (ABNORMAL) SALICYLATE (05/05/2025 2:06 AM CDT) SALICYLATES <1.7(L) 2.8 - 20.0 MG/DL 05/05/2025 2:33 AM CDT [facility] Comment: THERAPEUTIC: 2.8-20.0 Toxic Level: >=30 05/05/2025 2:06 AM CDT Lourdes Cisneros DO LABORATORY Fin al Result Performing Organization Address [facility] de Phone Number [facility] [address] [place] [address], [place] [phone] * CT ABD+PEL W IV CON ONLY [...] 12:09 AM Narrative 05/05/2025 12:12 AM CDT [address] [address] EXAMINATION: CT ABD+PEL W CON, 05/05/2025 12:09 [...] the pelvis. Urinary bladder appears relatively decompressed. Onmd-wg-[id number] wall thickening of the urinary bladder, nonspecific. No pelvic adenopathy. No acute fracture nor destructive process of the visualized osseous structures. Procedure Note Abdi Brownlee MD - 05/05/2025 [facility] [address] [place], [place] [address] EXAMINATION: CT ABD+PEL W CON, 05/05/2025 12:09 [...] within the pelvis. Urinary bladder appearsrelatively decompressed. Fohs-jw-dglvusmu wall thickening of the urinarybladder, nonspecific. No [...] AMPHETAMINE (U) NEGATIVE NEGATIVE 3:04 AM CDT [facility] BARBITURATES SCREEN (U) NEGATIVE NEGATIVE 05/05/2025 3:04 AM CDT [facility] BENZODIAZEPINES SCREEN (U) NEGATIVE NEGATIVE 05/05/2025 3:04 AM CDT [facility] CANNABINOIDS SCREEN (U) POSITIVE(A) NEGATIVE 05/05/2025 3:04 AM CDT [facility] COCAINE METABOLITES (U) NEGATIVE NEGATIVE 05/05/2025 3:04 AM CDT [facility] METHADONE (U) NEGATIVE NEGATIVE 05/05/2025 3:04 AM CDT [facility] OPIATE SCREEN (U) NEGATIVE NEGATIVE 025 3:04 AM CDT [facility] PHENCYCLIDINE PCP (U) NEGATIVE NEGATIVE 05/05/2025 3:04 AM CDT [facility] Comment: NOTE: RESULTS OF THIS DRUG SCREEN SHOULD BE USED FOR MEDICAL PURPOSES ONLY AND NOT FOR LEGAL OR EMPLOYMENT PURPOSES. POSITIVE RESULTS ARE NOT CONFIRMED. MEDICATIONS CONTAINING EPHEDRINE MAY CAUSE FALSE POSITIVE AMPHETAMINE CALL [phone], LAB, TO REQUEST CONFIRMATION TESTING. IF CREATININE IS <40 mg/dL. RECOLLECTION IS SUGGESTED. AMPHETAMINE- 500 NG/ML BARBITURATE- 200 NG/ML BENZODIAZEPINES- 200 NG/ML THC- 50 NG/ML COCAINE- 150 NG/ML METHADONE- 300 NG/ML OPIATE- 300 MG/ML PCP- 25 NG/ML CREATININE (U) 317.0(H) 28 - 217 MG/DL 05/05/2025 3:04 AM CDT [facility] URINE SPECIMEN / Unknown 05/04/2025 11:17 PM CDT us Lourdes Cisneros DO URINE ORDERABLES Fi nal Result [facility] [address] [place] [address], * (ABNORMAL) URINALYSIS (05/04/2025 11:17 PM CDT) Only the most recent of2 resultswithin the time period is included. SPECIMEN TYPE URINE CLEAN CATCH 05/04/2025 11:18 PM CDT [facility] COLOR (U) YELLOW 05/04/2025 11:29 PM CDT [facility] TRANSPARENCY CLEAR 05/04/2025 11:29 PM CDT [facility] SPECIFIC GRAVITY (U) 1.046(H) 1.001 - 1.030 05/04/2025 11:29 PM CDT [facility] U PH 7.0 5.0 - 9.0 05/04/2025 11:29 PM CDT [facility] LEUKOCYTES (U) NEGATIVE NEGATIVE 05/04/2025 11:29 PM CDT [facility] NITRITES NEGATIVE NEGATIVE 05/04/2025 11:29 PM CDT [facility] PROTEIN RANDOM (U) 30(H) <30 MG/DL 05/04/2025 11:29 PM CDT [facility] GLUCOSE (U) NORMAL NORMAL MG/DL 05/04/2025 11:29 PM CDT [facility] KETONES MG/DL (U) 80(A) NEGATIVE MG/DL 05/04/2025 11:29 PM CDT [facility] UROBILINOGEN 3.0(A) NORMAL MG/DL 05/04/2025 11:29 PM CDT [facility] BILIRUBIN (U) NEGATIVE NEGATIVE MG/DL 05/04/2025 11:29 PM CDT [facility] BLOOD (U) NEGATIVE NEGATIVE 05/04/2025 11:29 PM CDT [facility] MUCUS FEW /LPF 05/04/2025 11:29 PM CDT [facility] WBC/HPF 3 <6 /HPF 05/04/2025 11:29 PM CDT [facility] RBC/HPF 2 <6 /HPF 05/04/2025 11:29 PM CDT [facility] SQUAMOUS EPITHELIALS RARE /HPF 05/04/2025 11:29 PM CDT [facility] URINE SPECIMEN OBTAINED BY CLEAN CATCH PROCEDURE / Unknown 05/04/2025 11:17 PM CDT us Supriya CHARLES URINE ORDERABLES Final Resul t [facility] [address] [place] [address], [place] [phone] * URINE BACTERIA CULTURE (05/04/2025 11:17 PM CDT) Only the most recent of2 resultswithin the time period is included. SPEC DESCRIPTION URINE CLEAN CATCH 05/05/2025 9:46 AM CDT [facility] SPECIAL REQUESTS NO SPECIAL REQUEST 05/05/2025 9:46 AM CDT [facility] CULTURE RESULT NO GROWTH 2 DAYS 05/07/2025 6:51 AM CDT [facility] URINE SPECIMEN OBTAINED BY CLEAN CATCH PROCEDURE / Unknown 05/04/2025 11:17 PM CDT 05/05/2025 9:48 AM CDT Nury Espinosa MD MICROBIOLOGY - GENERAL OR DERABLES Final Result [facility] [address] [place] [address], [place] [phone] * TSH W/REFLEX (05/04/2025 10:05 PM CDT) TSH 0.393 0.358 - 3.74 uIU/ML 05/05/2025 1:19 AM CDT [facility] Comment: HIGH DOSES OF BIOTIN MAY INTERFERE WITH THIS TEST RESULT. CORRELATION TO CLINICAL HISTORY AND PRESENTATION RECOMMENDED. FREE T4 NOT INDICATED 05/04/2025 10:0 5 PM CDT Lourdes Cisneros DO LABORATORY Fin al Result Performing Organization Address City/[facility] Co de Phone Number [facility] [address] [place] [address], * ETHANOL (05/04/2025 10:05 PM CDT) ALCOHOL S/P/B <0.003 <0.003 G/DL 05/05/2025 1:19 AM CDT [facility] 05/04/2025 10:0 5 PM CDT Lourdes Cisneros DO LABORATORY Fin al Result [facility] [address] [place] [address], [place] [phone] * (ABNORMAL) ACETAMINOPHEN (05/04/2025 10:05 PM CDT) ACETAMINOPHEN S/P/B <2.0(L) 10.0 - 30.0 MCG/ML 05/05/2025 1:19 AM CDT [facility] Comment: THERAPEUTIC: 10-30 TOXIC: >200 05/04/2025 10:0 5 PM CDT Lourdes Cisneros DO LABORATORY Fin al Result Performing Organization Address City/[facility]/ZIP Co de Phone Number [facility] [address] [place] [address], [place] [phone] * LIPASE (05/04/2025 9:13 PM CDT) Only the most recent of2 resultswithin the time period is included. LIPASE 24 13 - 75 UNITS/L 05/04/2025 10:37 PM CDT [facility] 05/04/2025 9:13 PM CDT us Supriya CHARLES LABORATORY Final Result Performing Organization Address [facility] Co de Phone Number [facility] [address] [place] [address], [place] [phone] * US ABD LIMITED (04/23/2025 8:35 AM CDT) Anatomical Region Laterality Modality Abdomen Ultrasound 04/23/2025 10:0 2 AM CDT Impressions 04/23/2025 10:09 AM CDT IMPRESSION: 1. Partially obscured pancreas. 2. No appreciable acute abnormality. Ordered By: JUSTICE BAPTISTE Interpreted By: Rojas Hart, 04/23/2025 10:02 AM Narrative 04/23/2025 10:09 AM CDT [address] [address] IMAGING STUDIES: US ABD LIMITED DATE: 04/23/2025 [...] within the right kidney. Procedure Note Rojas aHrt MD - 04/23/[address] [address] IMAGING STUDIES: US ABD LIMITEDDATE: 04/23/2025 7:56 [...] - 2.0 MMOL/L 04/22/2025 6:25 PM CDT [facility] 04/22/2025 5:47 PM CDT Nury Espinosa MD LABORATORY Final Res ult [facility] [address] [place] [address], [place] [phone] * (ABNORMAL) PROCALCITONIN (PCT) (04/22/2025 4:57 PM CDT) PROCALCITONIN 0.69(H) 0.00 - 0.49 NG/ML 04/22/2025 5:49 PM CDT [facility] 04/22/2025 4:57 PM CDT us Nury Espinosa MD LABORATORY Final Res ult [facility] [address] [place] [address], [place] [phone] * (ABNORMAL) COMPREHENSIVE METABOLIC PANEL (04/22/2025 4:57 PM CDT) [facility] GLUCOSE 89 70 - 99 MG/DL 04/22/2025 5:31 PM CDT [facility] BUN 10 7 - 18 MG/DL 04/22/2025 5:31 PM CDT [facility] CREATININE S/P/B 0.81 0.55 - 1.02 MG/DL 04/22/2025 5:31 PM CDT [facility] SODIUM S/P/B 139 136 - 145 MMOL/L 04/22/2025 5:31 PM CDT [facility] POTASSIUM S/P/B 3.8 3.5 - 5.1 MMOL/L 04/22/2025 5:31 PM CDT [facility] CHLORIDE S/P/B 111 97 - 115 MMOL/L 04/22/2025 5:31 PM CDT [facility] CO2 22.5 21 - 32 MMOL/L 04/22/2025 5:31 PM CDT [facility] CALCIUM S/P/B 9.0 8.5 - 10.1 MG/DL 04/22/2025 5:31 PM CDT [facility] BILIRUBIN TOTAL S/P/B 1.0 0.2 - 1.2 MG/DL 04/22/2025 5:31 PM CDT [facility] Comment: THIS ASSAY IS NOT RECOMMENDED FOR PATIENTS UNDERGOING TREATMENT WITH ELTROMBOPAG DUE TO THE POTENTIAL FOR FALSELY ELEVATED RESULTS. TOTAL PROTEIN S/P/B 7.2 6.4 - 8.2 G/DL 04/22/2025 5:31 PM CDT [facility] ALBUMIN S/P/B 3.3(L) 3.4 - 5.0 G/DL 04/22/2025 5:31 PM CDT [facility] AST 10(L) 15 - 37 U/L 04/22/2025 5:31 PM CDT [facility] ALT 14 14 - 55 U/L 04/22/2025 5:31 PM CDT [facility] ALKALINE PHOSPHATASE S/P/B 48(L) 50 - 136 U/L 04/22/2025 5:31 PM CDT [facility] ANION GAP 5.5 2 - 10 MMOL/L 04/22/2025 5:31 PM CDT [facility] BUN CREATININE RATIO 12.3 6 - 26 04/22/2025 5:31 PM CDT [facility] A/G RATIO 0.8(L) 1.0 - 2.0 RATIO 04/22/2025 5:31 PM T [facility] GFR ESTIMATE >90 >90 ML/MIN/1.7 3 M2 04/22/2025 5:31 PM T [facility] Comment: NOTE: eGFR is not calculated [...] Nury Espinosa MD LABORATORY Final Res ult [facility] [address] [place] [address], [place] [phone] * (ABNORMAL) C-REACTIVE PROTEIN (04/22/2025 4:57 PM CDT) C-REACTIVE PROTEIN 11.10(H) <0.29 mg/dL 04/22/2025 6:25 PM CDT [facility] 04/22/2025 4:57 PM CDT Justice Baptiste DO LABORATORY Final Result [facility] [address] [place] [address], * ECG 12 lead (04/22/2025 2:59 PM CDT) 04/22/2025 2:[address] [facility] - 04/23/2025 8:06 AM CDT [address] Test Date: 2025-04-22 Pat Name: RADHA LAI Department: 41 Room: [facility] Gender: F [employer] Supervisor: [id number] : 2005 Requested By: SUPRIYA GEORGE Order Number: [id number] Reading MD: Luis Dumas Measurements Intervals [place] Rate: 99 P: 37 IA: 123 QRS: 68 QRSD: 74 T: 43 QT: 339 QTc: 436 Interpretive Statements SINUS RHYTHM No previous ECG available for comparison Other ischemic changes, not STEMI Preliminary EKG Interpretation by Supriya George, PCesarA. Procedure Note Luis Dumas MD - 04/23/[address] Test Date: 2025-04-22 Pat Name: RADHA LAI Department: 41 Room: [facility] Gender: F [employer] Supervisor: [id number] : 2005 Requested By: SUPRIYA GEORGE Order Number: [id number] Reading MD: Luis Dumas Measurements Intervals [place] Rate: 99 P: 37 IA: 123 QRS: 68 QRSD: 74 T: 43 QT: 339 QTc: 436 Interpretive Statements SINUS RHYTHM No previous ECG available for comparison Other ischemic changes, not STEMI Preliminary EKG Interpretation by Supriya George, PBrayan Supriya CHARLES ECG ORDERABLES Final Result [facility] * (ABNORMAL) SED RATE, ERYTHROCYTE (ESR) (04/22/2025 1:53 PM CDT) ESR 34(H) <20 MM/HR 04/22/2025 6:22 PM CDT [facility] Comment:Testing performed on [employer] iSED. 04/22/2025 1:53 PM CDT us Justice Baptiste DO LABORATORY Final Result Performing Organization Address City/[facility]/ZIP Co de Phone Number [facility] [address] [place] [address], [place] [phone] from Last 3 Months Insurance [employer] [employer] Advance Directives * Full Code (Latest Code Status on File) Date Activated Date Inactivated Comments 05/05/2025 1:17 AM 05/07/2025 3:24 PM * Full Code Date Activated Date Inactivated Comments 04/22/2025 4:50 PM 04/23/2025 2:22 PM Care Teams Preschool Teacher'S Assistant Relationship Specialty Start Date End Date None, Provider, MD PCP - General UNKNOWN PHYSICIAN SPECIALTY 04/22/25
--- OUTSIDE RECORDS SUMMARY | 2025-07-22 19:18 | XMS_ITS | Clinical Summary ---
Author Organization [facility] [facility] Address [address] [place] [address] Care Team Providers Care Bobbin Collector Name Role Phone Clare Bellamy MD Primary Care Provider [phone] Source Comments [facility],non-owned Affiliates and Associated Physician Practices is amultiple site organization consisting of ambulatory clinics and hospital sitesin [place], [place], [place] and [place]. This disclosure is being madepursuant to the Care Everywhere program and may not contain all information available regarding this patient. Last updated 18.[facility] Allergies Active Allergy Reactions Criticality Noted Date [...] on file Legal Sex Female 5:44 AM [employer]CH[employer] Gender Identity Not on file Sexual Orientation [...] Resulting Agency Comment Lab Testing performed at: [address] [id number] Clare Bellamy MD LAB - MICROBIOLOGY ORDERAB LES Final Result [facility] INSURANCE BILL [address] [place] [address] from Last 3 Months or Most Recently Relevant to Health Maintenance Insurance MEDICAID - [place] [facility] Care Teams Bobbin Collector Relationship Specialty Start Date End Date Clare Bellamy MD PCP - General Pediatrics 02/24/19
[2025-07-22] MEDS: HALOPERIDOL LACTATE 5 MG/ML VIAL IM (20:07)
[2025-07-22 20:09] LABS: Hematocrit 38.6 % (37.0-47.0); Hemoglobin 13.2 g/dL (12.0-15.0); Immature Granulocyte Percent A 0.4 % (0-0.5); Lymphocytes Absolute Auto 0.92 K/mm3 (0.9-3.2); Mean Corpuscular HGB Conc 34.2 g/dl (32-36); Mean Corpuscular Hemoglobin 30.6 pg (26-34); Mean Corpuscular Volume 89.4 fl (80-100); Nucleated Red Blood Cells Absolute Auto 0.000 K/mm3 (0.0-0.012); Nucleated Red Blood Cells Perc 0.0 % (0.0-0.2); Platelet Count Result 235 k/mm3 (150-375); Red Blood Count 4.32 M/mm3 (4.2-5.4); White Blood Count 7.9 K/mm3 (4.5-10.0)
[2025-07-22] MEDS: SODIUM CHLORIDE 0.9% IV 1,000 ML 999 ML IV CONT (20:11)
[2025-07-22] MEDS: KETOROLAC 15 MG/ML VIAL (*BKC) IV PUSH (20:14)
[2025-07-22 20:16] LABS: Add Urine Microscopic? YES; Appearance Urine Turbid (Clear); Glucose Urine UA Negative (Negative); Leukocyte Esterase Ur Trace LEU/UL (Negative); Nitrate Urine Negative (Negative); Non Pathogenic Casts 0-2; Specific Grav Ur 1.030 (1.001-1.035)
[2025-07-22 20:20] LABS: Alanine Aminotransferase 17 U/L (6-35); Albumin Level 4.5 g/dL (3.5-5.1); Alkaline Phosphatase 64 U/L (38-126); Anion Gap 10 mmol/L (4-12); Aspartate Amino Transferase 30 U/L (14-36); Bilirubin,Total 1.6 mg/dL (0.2-1.3); Blood Urea Nitrogen 12 mg/dL (7-17); Calcium 9.5 mg/dL (8.4-10.2); Carbon Dioxide 21 mmol/L (22-30); Chloride 105 mmol/L (98-107); Estimated CRCL calculation 121 ml/min; Estimated Glomerular Filt Rate > 60; Glucose 96 mg/dL (65-110); Lipase 84 U/L (23-300); Potassium 3.5 mmol/L (3.4-5.0); Sodium 136 mmol/L (137-145); Total Protein 8.2 g/dL (6.3-8.2)
[2025-07-22 20:46] LABS: Cannabinoid Screen Urine Positive (Negative)
[2025-07-22 22:15] LABS: BEDSIDEPREGUCG Negative (Negative)
[2025-07-22 22:19] LABS: BEDSIDEPREGUCG Negative (Negative)
== END 2025-07-22 22:18 | disposition home or self-care (01) ==
PROVIDERS: Emergency Provider Registered Nurse
DX: R11.16 Cannabis hyperemesis syndrome (principal); E86.0 Dehydration; F12.90 Cannabis use, unspecified, uncomplicated
CPT/HCPCS: 36415; 74018; 80053; 80307; 81001; 81025; 83690; 85025; 96361; 96372; 96374; 99284; J1630; J1885; J7030